=== PATIENT | female | born 1960 | race Caucasian/White ===

== ENCOUNTER → 2018-02-03 16:59 | Outpatient (CLI) | payer OTHER, SELFPAY ==
[2018-02-03 17:59] LABS: Absolute Lymphocyte Count 1.96 X10^3/ul (0.83-4.51); Absolute Neutrophil Count 3.8 X10^3/uL (2.0-7.7); Basophil# 0.03 X10^3/uL; Basophil% 0.5 % (0-1); Eosinophil# 0.32 X10^3/uL; Eosinophils% 4.9 % (0-5); Hematocrit 40.3 % (37-47); Hemoglobin 13.2 g/dl (12.0-15.0); Lymphocyte # 1.96 X10^3/ul (4.0); Lymphocyte % 30.3 % (19-41); Mean Corp Hgb Conc 32.8 g/gl (32-36); Mean Corpuscular Hgb 28.8 pg (27.0-32.0); Mean Platelet Vol. 11.1 fl (6.2-12.0); Monocyte# 0.32 X10^3/uL; Monocyte% 4.9 % (0-10); Neutrophil # 3.83 X10^3/uL (2.7-7.7); Neutrophil % 59.2 % (47-70); Platelet Count 161 K/mm3 (150-450); RBC Distribution Width SD 41.6 fl (35.1-43.9); Red Blood Count 4.58 M/mm3 (4.2-5.4); White Blood Count 6.5 K/mm3 (4.4-11.0)
[2018-02-03 18:01] LABS: POSITIVE COUNT NO; POSITIVE DIFFERENTIAL NO; POSITIVE MORPHOLOGY NO
[2018-02-03 18:14] LABS: BUN 19 mg/dL (7-18); Creatinine, Serum 0.94 mg/dL (0.55-1.02); EST Glomerular Filtration Rate 66 mL/min (>60); Glucose 117 mg/dL (74-106)
[2018-02-03 18:15] LABS: Anion Gap 7 (5-15); BUN/Creat Ratio 20.3 RATIO (10-20); Calcium,Total 9.2 mg/dL (8.5-10.1); Chloride 106 mmol/L (98-107); Est Glom Filt Rate - Afr Amer 79 mL/min (>60); Magnesium 2.2 mg/dL (1.6-2.6); Potassium 3.6 mmol/L (3.5-5.1); Sodium Level 141 mmol/L (136-145)
== END ==
PROVIDERS: Family Provider Family Medicine; PCP Family Medicine; Visit Provider Family Medicine
DX: J02.9 Acute pharyngitis, unspecified (principal); R25.2 Cramp and spasm
CPT/HCPCS: 36415; 80048; 83735; 85025

== ENCOUNTER → 2019-02-03 10:02 | Outpatient (CLI) | payer OTHER, SELFPAY ==
[2019-02-03 12:34] LABS: Absolute Neutrophil Count 3.2 X10^3/uL (2.0-7.7); Basophil# 0.04 X10^3/uL; Basophil% 0.8 % (0-1); Eosinophil# 0.14 X10^3/uL; Eosinophils% 2.7 % (0-5); Hematocrit 40.8 % (37-47); Lymphocyte % 28.9 % (19-41); Mean Corp Hgb Conc 31.9 g/gl (32-36); Mean Corpuscular Hgb 28.3 pg (27.0-32.0); Mean Corpuscular Volume 88.9 fL (81-99); Mean Platelet Vol. 11.6 fl (6.2-12.0); Monocyte# 0.34 X10^3/uL; Monocyte% 6.6 % (0-10); Neutrophil # 3.16 X10^3/uL (2.7-7.7); Neutrophil % 60.8 % (47-70); Platelet Count 170 K/mm3 (150-450); RBC Distribution Width CV 13.1 % (11.6-14.6); RBC Distribution Width SD 41.9 fl (35.1-43.9); Red Blood Count 4.59 M/mm3 (4.2-5.4); White Blood Count 5.2 K/mm3 (4.4-11.0)
[2019-02-03 12:41] LABS: ALB/GLOB Ratio 1.3 RATIO (0.9-2.4); AST(SGOT) 10 U/L (15-37); Alanine Aminotransfer ALT/SGPT 17 U/L (13-56); Albumin, Serum 4.2 g/dL (3.2-5.0); Alkaline Phosphatase 114 U/L (45-117); Anion Gap 6 (5-15); BUN 12 mg/dL (7-18); BUN/Creat Ratio 13.5 RATIO (10-20); Calcium,Total 9.5 mg/dL (8.5-10.1); Chloride 106 mmol/L (98-107); Creatinine, Serum 0.89 mg/dL (0.55-1.02); EST Glomerular Filtration Rate 69 mL/min (>60); Est Glom Filt Rate - Afr Amer 84 mL/min (>60); Globulin 3.3 g/dL (2.2-4.2); Glucose 84 mg/dL (74-106); Lipase 184 U/L (73-393); POSITIVE COUNT NO; POSITIVE DIFFERENTIAL NO; POSITIVE MORPHOLOGY NO; Potassium 4.3 mmol/L (3.5-5.1); Protein, Total 7.5 g/dL (6.4-8.2); Sodium Level 143 mmol/L (136-145)
--- NOTE | 2019-02-03 14:35 | US_ITS ---
STUDY: ABDOMINAL ULTRASOUND - RIGHT UPPER QUADRANT REASON FOR VISIT: Female, 58 years old. Pain TECHNIQUE: Ultrasound evaluation of the right upper quadrant was performed with real-time and static lock-scale imaging. TECHNICAL QUALITY: Adequate. COMPARISON: None. FINDINGS: Liver: The liver measures 11 cm. There is normal echogenicity of the liver. The bile ducts are within normal limits. There is hepatic color flow. The direction of portal flow is hepatopetal. There is no demonstrated mass lesion. Gallbladder: Normal distended gallbladder. The gallbladder wall measures 3 mm. There is a negative sonographic Oakley's sign. There is no pericholecystic fluid. 1 cm echogenic focus in the fundus likely represents tumefactive sludge or fundal stone. Common Bile Duct (C.B.D.): The common bile duct measures 3 mm. Pancreas: Normal size of the head, body and tail of the pancreas. There is normal echogenicity of the pancreas. There is no demonstrated pancreatic mass or cyst. Right Kidney: Normal size of the right kidney. The right kidney measures 10 cm. Normal renal cortex. There is no demonstrated renal mass or cyst. There is no right hydronephrosis. US/Abdomen Limited IMPRESSION: No acute pathology identified in the right upper quadrant. Tumefactive sludge versus fundal stone. Electronically Signed: Saeid Griffin, at 16:23 EDT Tel , Service support ,
== END ==
PROVIDERS: Family Provider Family Medicine; PCP Family Medicine; Referring Provider Family Medicine; Visit Provider Family Medicine
DX: R10.9 Unspecified abdominal pain (principal)
CPT/HCPCS: 36415; 76705; 80053; 83690; 85025

== ENCOUNTER → 2019-02-17 11:50 | Outpatient (CLI) | payer OTHER, SELFPAY ==
[2019-02-10 15:28] VITALS: BMI 23.2
--- NOTE | 2019-02-17 12:05 | CT_ITS ---
STUDY: CT ABDOMEN AND PELVIS WITH CONTRAST REASON FOR EXAM: Female, 58 years old. Abdominal pain. History of prior hernia repair. RADIATION DOSAGE (If Supplied By Facility): CTDIvol = ( 15.03 ) mGy, DLP = ( 344.51 ) mGycm TECHNIQUE: Transaxial images were obtained from the dome of the diaphragm to the symphysis pubis with oral contrast. 80 IV/Oral Isovue 300 was administered. Sagittal and coronal images were reconstructed. Individualized dose optimization techniques were used for this CT. COMPARISON: Comparison is made with prior study dated June 10, 2016. FINDINGS: The visualized lung bases are unremarkable. The visualized portions of the heart are within normal limits. Normal liver. Normal gallbladder and extrahepatic biliary system. Normal spleen. Normal pancreas. Normal bilateral adrenal glands. Normal right kidney. Normal left kidney. Normal visualized stomach. Normal small intestine. There are scattered colonic diverticula consistent with diverticulosis. A large amount of fecal material is seen in the colon. The appendix is visualized and appears normal. Normal abdominal aorta. Normal inferior vena cava. Normal retroperitoneum. Normal urinary bladder. Normal abdominal wall. Grade 1 anterior listhesis of L5 on S1 without spondylolysis. CT/Abdomen/Pelvis WITH Contrast IMPRESSION: Large amount of fecal material is seen in the colon. Scattered sigmoid diverticula. Grade 1 anterior listhesis of L5 on S1 without spondylolysis. Electronically Signed: Constantine Sebastian, at 13:54 EDT , Service support ,
== END ==
PROVIDERS: Family Provider Family Medicine; PCP Family Medicine; Referring Provider Surgery; Visit Provider Surgery
DX: R10.9 Unspecified abdominal pain (principal)
CPT/HCPCS: 74177; Q9967

== ENCOUNTER 2019-03-25 10:59 | Day surgery (SDC) | payer OTHER, SELFPAY ==
--- NOTE | 2019-02-10 03:48 | HP_ITS ---
Intake Vital Signs 02/10/19 Height 5 ft 2 in 02/10/19 Weight: 127 lb 02/10/19 Body Mass Index (BMI) 23.2 02/10/19 Blood Pressure 120/75 02/10/19 Blood Pressure Location Rt brachial 02/10/19 Blood Pressure Position Sitting 02/10/19 Respiratory Rate 18 02/10/19 Pulse Rate 72 02/10/19 Pulse Source Monitor 02/10/19 Temperature 98.2 F 02/10/19 Temperature Source Oral 02/10/19 Pulse Ox 98 02/10/19 Oxygen Delivery Method room air Intake Visit Reasons: [place] [facility] [place] [employer] Required: No Is patient in pain?: No Allergies Antihistamines - Alkylamine Allergy (Verified 02/10/19 15:29) Anaphylaxis Antihistamines - Ethanolamine Allergy (Verified 02/10/19 15:29) Anaphylaxis Antihistamines - Ethylenediamine Allergy (Verified 02/10/19 15:29) Anaphylaxis Antihistamines - Piperazine Allergy (Verified 02/10/19 15:29) Anaphylaxis Antihistamines - Piperidine Allergy (Verified 02/10/19 15:29) Anaphylaxis cefaclor [From Ceclor] Allergy (Verified 02/10/19 15:29) Other erythromycin base Allergy (Verified 02/10/19 15:29) Other hydroxyzine HCl [From Atarax] Allergy (Verified 02/10/19 15:29) Other Penicillins Allergy (Verified 02/10/19 15:29) Hives Medications Advocar 1 tab PO BREAKFAST 02/12/16 [History Confirmed 02/10/19] Ibuprofen [Advil] 200 mg PO Q6H PRN PRN 02/12/16 [History Confirmed 02/10/19] Hydrocodone Bitart/Apap 5-325 [[place] 5/325] 1 - 2 tab PO Q4H PRN PRN #20 tab 06/10/16 [Rx Confirmed 02/10/19] Ondansetron [Zofran Odt] 4 mg PO Q8H PRN PRN #10 tab 06/10/16 [Rx Confirmed 02/10/19] cholecalciferol (vitamin D3) 2,000 unit capsule 2,000 unit PO DAILY 02/10/19 [History Confirmed 02/10/19] PFSH Medical History Acid reflux (Acute) Diarrhea (Acute) Nausea and vomiting (Acute) Surgical History History of right inguinal hernia repair (Acute) Family History Father Arthritis Heart disease Hypertension Cancer skin cancer Mother Diabetes Sister Cancer ovarian cancer Social History Smoking Status: Never smoker HPI HPI HPI: FUNMILAYO SYKES, is a 58 F who presents to the office today for HPI HPI Surgical H&P: Yes HPI: FUNMILAYO SYKES, is a 58 F who presents to the office today for right upper quadrant pain patient notes she has been having right upper quadrant right shoulder pain for a few months. She does also have nausea and vomiting. Patient also has had occasional loose stools. ROS General General: Yes fatigue; no weight change, appetite, colon cancer, breast cancer or weakness HEENT HEENT: No difficulty swallowing, eye injury, eye surgery, swollen glands or hoarseness Endo Endocrine: No thyroid disease, diabetes mellitus, thyroid cancer, Hair loss, heat intolerance or cold intolerance Skin Skin: No rash or changing moles Breast Breast: No left breast lump, right breast lump, nipple discharge, breast pain, abnormal mammogram, abnormal US or breast enlargement Musc Musculoskeletal: Yes arthritis; no back problems, rheumatoid arthritis, gout or joint pain Cardio Cardiovascular: No murmur, pacemaker, heart disease, atrial fibrillation, high blood pressure, heart attack, heart stent, palpitations, shortness of breat with exertion or chest pain Psych Psychiatric: No depression, anxiety or hearing voices Resp Respiratory: No shortness of breath, No sleep apnea, No cough, No COPD, No asthma, No emphysema, No wheezing Gastro Gastrointestinal: Yes abdominal pain, Yes nausea or vomiting, Yes diarrhea, No constipation, No blood in stool, Yes acid reflux, No hemorrhoids, No ulcers, Yes gallbladder problem, No black,tarry stools Dominik Hematologic: No blood thinners, No blood disorders, No bleeding, No anemia, No blood clots Neuro Neurologic: No system reviewed and no additional complaints, except as docu, No as per HPI, No abnormal walking, No abnormal hearing, No abnormal movements, No abnormal speech, No behavioral changes, No burning sensations, No confusion, No seizure-like activity, No unsteadiness, No dizziness, No localized weakness, No frequent falls, No headache(s), No lack of coordination, No loss of vision, No memory loss, No numbness, No other visual disturbances, No radiating pain, No restless legs, No sensory deficit, No fainting, No tingling, No tremor(s), No weakness, No other Exam Const General: cooperative Orientation: alert, oriented x3 Chest Breast Palpation: No nipple discharge Resp Effort & Inspection: normal respiratory effort Auscultation: clear to auscultation bilaterally Cardio Rate: regular rate Rhythm: regular rhythm Heart Sounds: no murmurs GI Inspection: non-distended Palpation: soft, tender in the RUQ Assessment & Plan Problems 1. Calculus of gallbladder without cholecystitis without obstruction K80.20 Plan The patient had recent CT and ultrasound. Ultrasound showed 1 cm focus of gallbladder sludge versus stone. I reviewed the patient's CT scan I am concerned because I believe the hepatic veins appear dilated. There are also in close proximity to the gallbladder. I would like to obtain a CT scan with p.o. and IV contrast to examine the liver before proceeding with laparoscopic cholecystectomy. I explained laparoscopic cholecystectomy to the patient as well as the risks. Patient would like to proceed. After CT is performed I will schedule her for laparoscopic cholecystectomy. Avery Galloway MD Pager: [facility] [address] [place] [address], [address] [place] [address] Office: Orders Orders: Abdomen/Pelvis WITH Contrast Today R10.9 Coding Level of Care Code Off vis,new,level 3 Diagnoses Calculus of gallbladder without cholecystitis without obstruction K80.20 ??Cholelithiasis location: gallbladder ??Cholecystitis presence: without cholecystitis ??Biliary obstruction: without biliary obstruction 02/10/19 1548 <Electronically signed by Avery darnell MD> Date _ Avery Galloway MD I have re-examined the patient. There are no clinical changes since date of exam.
[2019-02-10 15:28] VITALS: BMI 23.2
[2019-03-25] VITALS (8 sets, daily range): BP systolic 120–137; BP diastolic 62–87; PULSE 55–92; RESP 16–18; TEMP 36.2–36.8; O2SAT 97–100; BMI 23.0
--- NOTE | 2019-03-25 | GALL_PTH ---
PATIENT: FUNMILAYO SYKES LOC: [facility] [place] U#:[id number] AGE/SX: 58/F ROOM: RE03/25/[address]: Dr. Avery Galloway MD : 1960 BED: DIS: 03/25/2019 SPEC #: [id number] RECD: 03/25/19 15:08 STATUS: ROSALIO QUINTERO #: [id number] FITO: 03/25/19 00:[address]: Avery Galloway DEPT: SURGICAL PATHOLOGY RECD BY: Hardy Grier ENTERED: 03/28/19 10:53 SP TYPE: LÁZARO VAN DR: Dr. Juan Flynn MD Tissues: Gallbladder, NOS Procedures: Surgery Specimen Level III HEADER OPERATION: Laparoscopic cholecystectomy with IOC PRE-OP DIAGNOSIS: Calculus of gallbladder without cholecystitis or obstruction TISSUE SUBMITTED: Gallbladder MICROSCOPIC DIAGNOSIS Gallbladder, cholecystectomy: Chronic cholecystitis and cholelithiasis. SJ:felix 03/29/19 MICROSCOPIC DESCRIPTION Slides are reviewed. GROSS DESCRIPTION Received is one container labeled with the patient's name and designated gallbladder. The specimen consists of a gallbladder measuring 9 cm in length and up to 3 cm in diameter. The external surface is pink-fabian, smooth and glistening for the most part. Focally it is granular, hemorrhagic and contains cautery artifact. The gallbladder contains an ovoid, brown stone at the fundus measuring 3.5 x 2 x 2 cm. The mucosa is bile-stained and without any mass lesions. The gallbladder wall measures up to 0.3 cm in thickness. [employer] sections from the gallbladder and the cystic duct are submitted in one cassette. / SJ:felix 03/28/19 TC:3 CPT: 45175
--- NOTE | 2019-03-25 11:11 | EKG12_ITS ---
Test Reason : PRE OP Blood Pressure : / mmHG Vent. Rate : 059 BPM Atrial Rate : 059 BPM P-R Int : 144 ms QRS Dur : 078 ms QT Int : 390 ms P-R-T Axes : 001 033 026 degrees QTc Int : 386 ms Sinus bradycardia Otherwise normal ECG Confirmed by WILLIE BASHIR, PORTER ([id number]), science editor MAGDY TRAMMELL ([id number]) on 03/30/2019 1:00:45 PM Referred By: Avery Galloway Confirmed By:PORTER TAPIA MD
--- NOTE | 2019-03-25 12:58 | DCINST_ITS ---
Discharge Diet: Light diet - advance as tolerated Discharge Activity: Return to Normal Activity, May Not Drive - for 2-3 days or while taking narcotic pain medicataions., - - Do not drive, work heavy equipment or sign legal documents for 24 hours. May shower in (days): 1 - with the bandage in place. Lifting Restrictions: 20 lbs for 2 weeks Additional Activity Instructions:: Pain medication may cause nausea. You should typically eat light foods as you take your pain medications. Pain medication may also cause constipation. If this is a problem for you, please discuss with your doctor. Call your doctor if your incision/area has: Continuous Slow Oozing, Sudden Increased Bleeding, Increased Pain/ Swelling, Increased Redness, Foul Smelling Discharge, Fever of 101 or Higher Call your doctor if you observe: Fever of 101 or Higher Suture Line Care: Avoid Pulling/Pushing, Avoid Pinching/Bending Additional Dressing/Incision Instructions:: Leave operative bandaids on for 2 days. When you remove dressing, leave Steri-Strips on until your follow-up appointment, or until the Steri-Strips fall off on their own. Allergies/Adverse Reactions: Allergies Antihistamines - Alkylamine Allergy (Verified 03/25/19 11:22) Anaphylaxis Antihistamines - Ethanolamine Allergy (Verified 03/25/19 11:22) Anaphylaxis Antihistamines - Ethylenediamine Allergy (Verified 03/25/19 11:22) Anaphylaxis Antihistamines - Piperazine Allergy (Verified 03/25/19 11:22) Anaphylaxis Antihistamines - Piperidine Allergy (Verified 03/25/19 11:22) Anaphylaxis cefaclor [From Ceclor] Allergy (Verified 03/25/19 11:22) Other erythromycin base Allergy (Verified 03/25/19 11:22) Other hydroxyzine HCl [From Atarax] Allergy (Verified 03/25/19 11:22) Other Penicillins Allergy (Verified 03/25/19 11:22) Hives Medications to take at Discharge Advocar 1 tab PO BREAKFAST 02/12/16 Ibuprofen [Advil] 200 mg PO Q6H PRN PRN 02/12/16 cholecalciferol (vitamin D3) 2,000 unit capsule 2,000 unit PO DAILY 02/10/19 Hydrocodone Bitart/Apap 5-325 [[place] 5MG-325MG] 1 - 2 tablet PO Q4H PRN PRN 7 Days #30 tablet 03/25/19 The following prescriptions were given: Hydrocodone Bitart/Apap 5-325 [[place] 5MG-325MG] 1 - 2 tablet PO Q4H PRN PRN 7 Days #30 tablet PRN Reason: Pain Transmission Status: Sent to [facility] Primary Care Physician: Juan Flynn MD [Primary Care Provider] - Test Results: Test results from this visit will be discussed in further detail at your follow- up appointment, if applicable. Please Follow Up With: Avery Galloway MD When: Please call to schedule 2 week follow up appointment. [phone]
--- NOTE | 2019-03-25 13:00 | RAD_ITS ---
PROCEDURE: FLUOROSCOPY ASSISTANCE DATE OF EXAMINATION: 03/25/2019 INDICATION: Female, 58 years old. Intraoperative cholangiography status post cholecystectomy. FLUOROSCOPY TIME (if supplied): (0:14) minutes/seconds. 81 cine fluoroscopic images. RADIATION DOSAGE (If Supplied By Facility): Please see attached dosage report. IMPRESSION/FINDINGS: Images depict cannulation of the cystic duct, cholangiogram, nondilated intrahepatic biliary tree, patent biliary tree without visible filling defect, normal spillage into the small bowel, minimal reflux within nondilated pancreatic duct. Fluoroscopic images submitted to PACS for procedural/postsurgical documentation Please see procedural/surgical note Radiologist not present at the time of examination Electronically Signed: Librado Brambila MD at 18:35 EDT Tel , Service support , RAD/Cholangiogram/ O R,Initial
[2019-03-25] MEDS: Bupiv/Epi 0.25% 30 ML Vial (13:34)
--- NOTE | 2019-03-25 13:47 | OP.PCM_ITS ---
Problem List (1) Cholelithiasis Status: Acute Qualifiers: Cholelithiasis location: gallbladder Cholecystitis presence: without cholecystitis Biliary obstruction: without biliary obstruction Qualified Code(s): K80.20 - Calculus of gallbladder without cholecystitis without obstruction Report of Operation Date of Procedure: 03/25/19 Pre-Operative Diagnosis: Cholelithiasis Post-Operative Diagnosis: Same Surgery/Procedure Performed:: Laparoscopic cholecystectomy with cholangiogram Description of Surgical Findings:: Normal cholangiogram. Large gallstone Specimen's removed: Gallbladder and contents Description of Procedure: After obtaining informed consent patient was brought back to the operating room. General anesthesia was induced. The abdomen was prepped and draped in usual sterile fashion. A small midline incision was made superior to the umbilicus and deepened to the level of fascia. The fascia was elevated and incised. Next the peritoneum was elevated and incised in the same fashion. Finger sweep was p erformed and the Souza trocar was placed into the abdomen. The balloon was inflated. The abdomen was inflated to 15 mmHg. Next a camera was introduced into the abdomen and the abdomen was inspected. Next under direct visualization three 5-mm ports were placed one subxiphoid and 2 subcostal. Next the gallbladder was elevated and retracted toward the right shoulder. The peritoneum was stripped from the gallbladder. The infundibulum was located and retracted laterally. Next the triangle of Calot was dissected and the cystic duct and cystic artery were identified. Cholangiograms were performed. The Perez clamp was used to clamp across the infundibulum and the catheter needle was inserted into the gallbladder. Under fluoroscopy contrast was instilled into the gallbladder and the common duct, cystic duct as well as proximal hepatic ducts were identified. There was good filling of the duodenum. There were no filling defects noted in the common bile duct. The clamp was removed as well as the needle and the infundibulum was grasped once more. Three hemolock clips were placed across the cystic duct. The cystic duct was then divided leaving 2 clips on the stump. The cystic artery was clipped and divided in the same fashion. The hook cautery was then used to take the gallbladder off of the gallbladder bed. Hemostasis was obtained. Gallbladder fossa was irrigated and no active bleeding or bile leakage was noted. Next the camera switched to a 5 mm camera and introduced in the subxiphoid port. An Endopouch bag was placed through the umbilical port and the gallbladder was placed into it. The gallbladder was then removed through the umbilical incision. The camera was then reinserted through the umbilical port. The gallbladder fossa was inspected once more and noted to be hemostatic with no leaking bile. The abdomen was suctioned dry. The 5 mm ports were removed under direct visualization. The umbilical port was then removed and the air was removed from the abdomen. Next using an 0 Vicryl suture the umbilical fascia was closed in a [id number] fashion. The umbilical port site was irrigated local anesthetic was administered to all the incisions. All the incisions were closed with interrupted subcuticular 4-0 Monocryl sutures followed by Steri-Strips and dressings. The patient was awoken and taken to PACU in stable condition. - Admit VTE Documentation VTE Mechan Device Prophylaxis: SCD's
[2019-03-25] MEDS: HYDROcodone Bitartrate/Apap 5/325 Tablet PO (15:36)
--- NOTE | 2019-03-28 09:36 | HP.PCM_ITS ---
Problem List (1) Cholelithiasis Status: Acute Qualifiers: Cholelithiasis location: gallbladder Cholecystitis presence: without cholecystitis Biliary obstruction: without biliary obstruction Qualified Code(s): K80.20 - Calculus of gallbladder without cholecystitis without obstruction History of Present Illness Date of Admission: 03/25/19 The patient is a 58 year old F who is having right upper quadrant pain and ultrasound showed cholelithiasis. Past Medical History Medical History: Medical History (Last Reviewed 02/10/19 @ 15:23 by Kalpana Palmer) Abdominal pain R10.9 Acid reflux K21.9 Diarrhea R19.7 Nausea and vomiting R11.2 Allergies Antihistamines - Alkylamine Allergy (Verified 03/25/19 11:22) Anaphylaxis Antihistamines - Ethanolamine Allergy (Verified 03/25/19 11:22) Anaphylaxis Antihistamines - Ethylenediamine Allergy (Verified 03/25/19 11:22) Anaphylaxis Antihistamines - Piperazine Allergy (Verified 03/25/19 11:22) Anaphylaxis Antihistamines - Piperidine Allergy (Verified 03/25/19 11:22) Anaphylaxis cefaclor [From Ceclor] Allergy (Verified 03/25/19 11:22) Other erythromycin base Allergy (Verified 03/25/19 11:22) Other hydroxyzine HCl [From Atarax] Allergy (Verified 03/25/19 11:22) Other Penicillins Allergy (Verified 03/25/19 11:22) Hives Home Medications: Ambulatory Orders Medication Instructions Recorded Advocar 1 tab PO BREAKFAST 02/12/16 Ibuprofen [Advil] 200 mg PO Q6H PRN PRN 02/12/16 cholecalciferol (vitamin D3) 2,000 2,000 unit PO DAILY 02/10/19 unit capsule Hydrocodone Bitart/Apap 5-325 1 - 2 tab PO Q4H PRN PRN 7 Days 03/25/19 [[place] 5MG-325MG] #30 tab Surgical History: Surgical History (Last Updated 02/10/19 @ 15:24 by Kalpana Palmer) History of right inguinal hernia repair Z98.890, Z87.19 Smoking Status: Never smoker Tobacco Use: Non-smoker Review of Systems Constitutional: Denies: Anorexia, Chills, Night Sweats HEENT: Denies: Difficulty Swallowing Cardiovascular: Denies: Chest Pain Respiratory: Denies: Cough, Shortness of Breath Gastrointestinal: Reports: Abdominal Pain, Nausea Genitourinary: Denies: Dysuria Musculoskeletal: Denies: Joint Tenderness Skin: Denies: Dryness, Jaundice Neurological: Denies: Blurred vision VTE Information - Inpt Only VTE Present on Admission: No VTE Mechan Device Prophylaxis: SCD's - Physical Exam General: Alert, Oriented x3 Neck: No JVD Lungs: Normal air movement Cardiovascular: Regular rate, Regular Rhythm Abdomen: Soft, Non Tender, Non-Distended Vital Signs Temp Pulse Resp BP Pulse Ox 97.2 F L 63 18 120/62 98 03/25/19 17:19 03/25/19 17:19 03/25/19 17:19 03/25/19 17:19 03/25/19 17:19 Oxygen Delivery Method Room Air Weight: 125 lb 14.143 oz Body Mass Index (BMI) 23.0 Assessment/Plan All Active Problems (Last Reviewed 02/10/19 @ 15:23 by Kalpana Palmer) Cholelithiasis (Acute) 58-year-old female with cholelithiasis and biliary colic I discussed the procedure in detail with the patient. I discussed the risks, benefits, and alternatives of the procedure. I discussed the risks including but not limited to bleeding, infection, injury to surrounding organs such as the liver, bile duct, bowels. I did discuss the possibility of having to convert to an open procedure as well as the possibility that if any injuries occurred this may necessitate further surgery at a tertiary care center. Avery Galloway MD Pager: [facility] [address] [place] [address], [address] [place] [address] Office:
== END 2019-03-25 17:21 | disposition home or self-care (01) ==
LOC: SDC 11:01 → AC 11:02
PROVIDERS: Family Provider Family Medicine; PCP Family Medicine; Referring Provider Surgery; Visit Provider Surgery
PROC: (CPT 47610; principal; 2019-03-25 12:40)
DX: K80.10 Calculus of gallbladder with chronic cholecystitis without obstruction (principal); K21.9 Gastro-esophageal reflux disease without esophagitis; K58.0 Irritable bowel syndrome with diarrhea
CPT/HCPCS: 00790; 47563; 74300; 76000; 88304; 93005; J7120; J2405

== ENCOUNTER 2020-01-25 15:00 | Outpatient (RCR) | payer OTHER, SELFPAY ==
[2019-03-25 11:23] VITALS: BMI 23.0
--- NOTE | 2019-12-19 18:23 | HP.SP.AD_ITS ---
History - History Date of Eval: 12/19/19 Previous speech therapy: No Smoking Status: Never smoker Hx Smoking: No Hx Tobacco Use: No - Pain Is pain an issue with your current prescribed condition?: No Patient Allergies - Allergies Allergies Antihistamines - Alkylamine Allergy (Verified 04/08/19 08:24) Anaphylaxis Antihistamines - Ethanolamine Allergy (Verified 04/08/19 08:24) Anaphylaxis Antihistamines - Ethylenediamine Allergy (Verified 04/08/19 08:24) Anaphylaxis Antihistamines - Piperazine Allergy (Verified 04/08/19 08:24) Anaphylaxis Antihistamines - Piperidine Allergy (Verified 04/08/19 08:24) Anaphylaxis cefaclor [From Ceclor] Allergy (Verified 04/08/19 08:24) Other erythromycin base Allergy (Verified 04/08/19 08:24) Other hydroxyzine HCl [From Atarax] Allergy (Verified 04/08/19 08:24) Other Penicillins Allergy (Verified 04/08/19 08:24) Hives Subjective Clinical Impression - Adult Clinical Impression Dysphonia: any 'abnormal' vocal quality suggesting an interruption of normal production: Present Breathiness: an audible excape of air or a 'weak' vocal tone suggestive of glottal insufficiency: Present Aphonic break: a break or intrruption in the vibration or phonation: Present - Non-Phonatory Behaviors/Respiration Reduced loudness or vocal weakness: Present Limited breath support for speech: Present Clavicular breathing: excessive movement of the chest and shoulders during inspiration: Present Other Impressions - Comments Assessment -: Pt was seen by ENT 12/12/2019 and 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 Pt reports episodes of pharyngitis and dysphonia for up to three days at a time each winter. She currently reports voice loss for nearly two weeks. Pt did have episodes of pharyngitis followed by sinusitis shortly prior to current dysphonia. She states that her voice gradually became smaller before progressing to a whisper only while on a phone call, without subsequent improvement. She reports not even whispering for some time and resorting to writing for functional communication. The pt feels that second- hand smoke (exposed frequently at work) may have an impact on her vocal functioning. Education provided re: spasmodic dysphonia and its causes (neurological with possible environmental triggers). She also reports significantly increased stress/anxiety over the last three years and especially more recently. During the evaluation, the pt was initially aphonic, gesturing and producing brief whispers. However, pt did progress to phonation as evaluation continued, presenting with a breathy, high-pitched vocal quality with significantly decreased volume. Pt reports feeling of strain and soreness in throat with prolonged phonation, though no extrinsic laryngeal muscle tension was observed. Pt presented with significant clavicular breathing, with education provided to improve abdominal breath support. 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 Plan - Plan Plan: A skilled voice therapy trial is warranted at this time secondary to the pt's need for improved phonation across environments, as her current level of functioning may make it difficult for her to effectively convey information to clients, coworkers, family, friends, and beyond. Therapy will further target increasing understanding of abductor spasmodic dysphonia and its effects, de creasing tension/strain and improving breath support, and effective and efficient compensation methods. - Recommendations Treatment Warranted: Yes - Frequency Frequency: 2x /Week Duration: 2-4 Weeks - Prognosis Prognosis: Fair - Goals that are Established: Determination:: Goals will be added/modified as deemed necessary and appropriate. Therapy will be discontinued when results of re-evaluation indicate therapy is no longer needed or lack of progress has been documented. - Goal #1-5 Goal #1: The pt will independently demonstrate abdominal breathing to improve breath support and vocal volume in 4/5 trials. Goal #2: The pt will complete laryngeal relaxation exercises to reduce reported laryngeal tension in 4/5 trials. Goal #3: The pt will demonstrate improved voicing by maintaining phonation during phrases at an appropriate/conversational pitch and loudness in 4/5 trials. Education - Patient Instruction Patient Education: Diagnosis, Treatment Plan, Goals
--- NOTE | 2020-01-25 15:33 | HP.SP.DC ---
ST Discharge Summary - Discharged: Discharge: Geena Hernandez is discharged from outpatient speech therapy effective 01/25/2020. Geena attended 9 sessions following her initial evaluation targeting improved voicing secondary to a diagnosis of abductor spasmodic dysphonia. At the time of discharge, the patient is demonstrating normal voicing and volume for the purposes of conversation and feels her voice has largely returned to normal. She does have some - very infrequent - episodes of breathiness following voiceless consonants during conversation, which she is able to improve with subsequent productions. Geena has improved her breath support and was educated on laryngeal relaxation exercises PRN. Overall, she demonstrates an improved understanding of abductor spasmodic dysphonia, its causes, and its effects, resulting in a reported increased confidence in her voice. Please reconsult as needed.
== END 2020-01-25 19:00 | disposition home or self-care (01) ==
LOC: SP 15:00
PROVIDERS: PCP Family Medicine; Referring Provider Otolaryngology; Visit Provider Otolaryngology
DX: J38.3 Other diseases of vocal cords (principal)
CPT/HCPCS: 92507; 92524

== ENCOUNTER → 2020-12-31 16:32 | Outpatient (CLI) | payer OTHER, SELFPAY ==
[2019-03-25 11:23] VITALS: BMI 23.0
[2020-12-31 17:57] LABS: Erythrocyte Sedimentation Rate 2 mm/hr (0-30)
[2020-12-31 18:49] LABS: CRP < 2.90 mg/L (0.0-3.0)
[2021-01-02 18:04] LABS: ANTINUCLEAR ANTIBODIES DIRECT Negative (Negative)
== END ==
PROVIDERS: PCP Family Medicine; Visit Provider Family Medicine
DX: M25.559 Pain in unspecified hip (principal)
CPT/HCPCS: 36415; 85652; 86038; 86140

== ENCOUNTER → 2021-02-19 09:28 | Outpatient (CLI) | payer OTHER, SELFPAY ==
[2019-03-25 11:23] VITALS: BMI 23.0
--- NOTE | 2021-02-19 09:35 | RAD_ITS ---
STUDY: X-RAY - RIGHT FOOT CLINICAL: Right foot pain extending across metatarsals since yesterday, no specific injury. TECHNIQUE: 3 view(s) of the foot. COMPARISON: None. FINDINGS: Normal talus, calcaneus, and tarsal bones. Normal visualized subtalar, talonavicular, calcaneocuboid, tarsal and tarsometatarsal articulations. Normal metatarsi. Normal metatarsophalangeal joint of the great toe. Normal tibial and fibular sesamoid bones. Normal interphalangeal joint of the great toe. Normal phalanges of the great toe. Normal second through fifth metatarsophalangeal joints. Normal interphalangeal joints and phalanges of the lesser toes. The soft tissue structures are unremarkable. RAD/Foot min 3 Views IMPRESSION: Normal x-ray examination of the right foot. Electronically Signed: Len Pearl MD at 10:51 EDT Tel , Service support ,
== END ==
PROVIDERS: PCP Family Medicine; Referring Provider Family Medicine; Visit Provider Family Medicine
DX: M79.671 Pain in right foot (principal)
CPT/HCPCS: 73630

== ENCOUNTER → 2021-03-06 08:38 | Outpatient (CLI) | payer OTHER, SELFPAY ==
[2019-03-25 11:23] VITALS: BMI 23.0
--- NOTE | 2021-03-06 08:45 | BD_ITS ---
STUDY: DUAL ENERGY X-RAY ABSORPTIOMETRY / DXA REASON FOR EXAM: Female, 60 years old. E55.9. The patient is postmenopausal. TECHNIQUE: Bone Mineral Density (BMD) measurements of lumbar spine and bilateral hips were obtained. COMPARISON: None. FINDINGS: Lumbar Spine (L1-L4): g/cm2 (1.148) / T-score (-0.3) / Z-score (0.9) Findings are suggestive of normal bone density with a low fracture risk. Left Femur Total: g/cm2 (0.813) / T-score (-1.5) / Z-score (-0.6) Left Femoral Neck: g/cm2 (0.807) / T-score (-1.7) / Z-score (-0.4) Right Femur Total: g/cm2 (0.872) / T-score (-1.1) / Z-score (-0.1) Right Femoral Neck: g/cm2 (0.843) / T-score (-1.4) / Z-score (-0.2) BD/Dexa Bone Density Study IMPRESSION: The patient is considered osteopenic as outlined below according to World Arvin Organization (WHO) criteria with a moderate fracture risk. Reference Information: The T-score is the number of standard deviations above or below the standard which is normal for young adults at their peak bone mineral density. The World Health Organization (WHO) interprets the T-scores as follows: Above -1 Normal bone density Between -1 and -2.5 Osteopenia Equal to / or below -2.5 Osteoporosis As a practical clinical guideline, osteopenia may be graded as follows: Mild -1 through -1.5 Moderate -1.6 through -2.0 Severe -2.1 through -2.4 The Z-score is the number of standard deviations above or below age-matched controls. A Z-score of less than -1.5 would be considered abnormal. References: 1. NIH Osteoporosis and Related Bone Diseases www osteo.org 2. International Society for Clinical Densitometry www iscd.org 3. National Osteoporosis Foundation www nof.org Electronically Signed: Constantine Sebastian MD at 15:27 EDT , Service support ,
== END ==
PROVIDERS: PCP Family Medicine; Referring Provider Family Medicine; Visit Provider Family Medicine
DX: E55.9 Vitamin D deficiency, unspecified (principal)
CPT/HCPCS: 77080

== ENCOUNTER → 2023-06-11 | Outpatient (CLI) | payer OTHER, SELFPAY ==
[2023-06-11 11:19] LABS: Vitamin D,25 Hydroxy 75.3 ng/mL
[2023-06-11 11:26] LABS: Anion Gap 2 (5-15); BUN 12 mg/dL (7-18); BUN/Creat Ratio 13.3 RATIO (10-20); Calcium,Total 9.2 mg/dL (8.5-10.1); Chloride 109 mmol/L (98-107); Cholesterol 154 mg/dL (200); EST Glomerular Filtration Rate 67 mL/min (>60); Est Glom Filt Rate - Afr Amer 82 mL/min (>60); Glucose 97 mg/dL (74-106); High Density Lipoprotein 52 mg/dL; Potassium 3.8 mmol/L (3.5-5.1); Sodium Level 139 mmol/L (136-145); Triglycerides 112 mg/dL; Very Low Density Lipoprotein 22 mg/dL (5-40)
== END | disposition home or self-care (01) ==
LOC: MTLAB 09:44
PROVIDERS: PCP Family Medicine; Visit Provider Family Medicine
DX: Z00.00 Encounter for general adult medical examination without abnormal findings (principal)
CPT/HCPCS: 36415; 80048; 80061; 82306

== ENCOUNTER → 2023-07-02 | Outpatient (CLI) | payer OTHER, SELFPAY ==
--- NOTE | 2023-07-02 15:55 | BD_ITS ---
STUDY: DUAL ENERGY X-RAY ABSORPTIOMETRY / DXA REASON FOR EXAM: Female, 62 years old. F41.9 TECHNIQUE: Bone Mineral Density (BMD) measurements of lumbar spine and bilateral hips were obtained. COMPARISON: Comparison is made with prior study dated March 06, 2021. FINDINGS: Lumbar Spine (L1-L4): g/cm2 (0.887) / T-score (-1.9) / Z-score (-0.3) Findings are suggestive of osteopenia with a moderate fracture risk. Left Femur Total: g/cm2 (0.709) / T-score (-1.9) / Z-score (-0.8) Left Femoral Neck: g/cm2 (0.593) / T-score (-2.3) / Z-score (-0.9) Right Femur Total: g/cm2 (0.744) / T-score (-1.6) / Z-score (-0.5) Right Femoral Neck: g/cm2 (0.672) / T-score (-1.6) / Z-score (-0.2) The T-Scores on the most recent prior examination were: Lumbar Spine (L1-L4): There has been worsening of bone density since the previous examination. Left Femur Total: which represents a worsening of 5.8%. Right Femur Total: which represents a worsening of 8.2%. BD/Dexa Bone Density Study IMPRESSION: The patient is considered osteopenic as outlined below according to World [employer] Organization (WHO) criteria with a high fracture risk. There has been worsening of bone density since the previous examination. Reference Information: The T-score is the number of standard deviations above or below the standard which is normal for young adults at their peak bone mineral density. The World Health Organization (WHO) interprets the T-scores as follows: Above -1 Normal bone density Between -1 and -2.5 Osteopenia Equal to / or below -2.5 Osteoporosis As a practical clinical guideline, osteopenia may be graded as follows: Mild -1 through -1.5 Moderate -1.6 through -2.0 Severe -2.1 through -2.4 The Z-score is the number of standard deviations above or below age-matched controls. A Z-score of less than -1.5 would be considered abnormal. References: 1. NIH Osteoporosis and Related Bone Diseases www osteo.org 2. International Society for Clinical Densitometry www iscd.org 3. National Osteoporosis Foundation www nof.org Electronically Signed: Constantine Sebastian MD at 15:21 EDT ,
== END | disposition home or self-care (01) ==
PROVIDERS: PCP Family Medicine; Referring Provider Family Medicine; Visit Provider Family Medicine
DX: F41.9 Anxiety disorder, unspecified (principal)
CPT/HCPCS: 77080

== ENCOUNTER → 2023-11-18 | Outpatient (CLI) | payer OTHER, SELFPAY ==
--- OUTSIDE RECORDS SUMMARY | 2023-11-18 11:04 | XMS RPT_ITS | CCD ---
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 Name Role Phone Paula Gómez Unavailable Unavailable Pending Provider Unavailable Unavailable Problems Active Problems Problem Classification Problem Date Documented Da te Episodic/Chronic Fracture of lower limb (1 source) Closed fracture of fifth metatarsal bone; Translations: [Closed displaced fracture of fifth metatarsal bone of left foot with routine healing, subsequent encounter] Episodic Past or Other Problems Problem Classification Problem Date Documented Da te Episodic/Chronic NEGATED: Highlighted row has not occurred!Residual codes; unclassified (20 sources) Disease Episodic Results Test Name Value Interpretation Reference Range Facil ity Encounters Encounter Date Encounter Type Care Provider Facility Start: 09-24-2020 Patient encounter procedure Paula Gómez [facility] Work Phone: Start: 09-19-2020 Patient encounter procedure Paula Gómez [facility] Work Phone: Start: 09-12-2020 Patient encounter procedure Paula Gómez [facility] Work Phone: Start: 09-05-2020 Patient encounter procedure Paula Gómez [facility] Work Phone: Start: 08-27-2020 Patient encounter procedure Paula Gómez [facility] Work Phone: Start: 08-22-2020 Patient encounter procedure Paula Gómez [facility] Work Phone: Start: 08-15-2020 Patient encounter procedure Paula Gómez [facility] Work Phone: Start: 08-08-2020 Patient encounter procedure Paula Gómez [facility] Work Phone: Start: 08-01-2020 Patient encounter procedure Paula Gómez [facility] Work Phone: Start: 07-30-2020 Patient encounter procedure Paula Gómez [facility] Work Phone: Start: 07-25-2020 Patient encounter procedure Paula Gómez [facility] Work Phone: Start: 07-23-2020 Patient encounter procedure Paula Gómez [facility] Work Phone: Start: 07-18-2020 Patient encounter procedure Paula Gómez [facility] Work Phone: Start: 07-16-2020 Patient encounter procedure Paula Gómez [facility] Work Phone: Start: 07-09-2020 Patient encounter procedure Paula Gómez [facility] Work Phone: Start: 07-06-2020 Patient encounter procedure Paula Gómez [facility] Work Phone: Start: 07-04-2020 Patient encounter procedure Paula Gómez [facility] Work Phone: Start: 06-29-2020 Patient encounter procedure Paula Gómez [facility] Work Phone: Start: 06-25-2020 Patient encounter procedure Paula Gómez [facility] Work Phone: Start: 06-22-2020 Patient encounter procedure Paula Gómez [facility] Work Phone: Start: 06-18-2020 Patient encounter procedure Paula Gómez [facility] Work Phone: Start: 06-15-2020 Patient encounter procedure Paula Gómez [facility] Work Phone: Start: 06-11-2020 Patient encounter procedure Paula Gómez [facility] Work Phone: Start: 06-01-2020 Patient encounter procedure Paula Gómez [facility] Work Phone: Social History Date Type Detail Facility Assertion Tobacco smoking consumption unknown (finding) [facility] Work Phone: Functional Status Date Assessment Result Facility NEGATED: Highlighted row Functional performance Functional status health issues are not documented Disease [facility] Work Phone: Mental Status Date Assessment Result Facility NEGATED: Highlighted row Cognitive function [Interpretation] Cognitive status health issues are not documented Disease [facility] Work Phone: Summary Purpose Family History No Family History Records FoundNo Family History Records Found Advance Directives No Advanced Directives Records FoundNo Advanced Directives Records Found Additional Source Comments INFORMATION SOURCE (unrecogn ized section and content) DATE CREATED AUTHOR AUTHOR'S MARIANA ATION 09/28/2020 [employer] FOR RECORDS PERTAINING TO PATIENTS WHO ARE OR HAVE BEEN ENROLLED IN A CHEMICAL DEPENDENCY/SUBSTANCEABUSE PROGRAM, SOME INFORMATION MAY BE OMITTED. This clinical summary was aggregated from multiple sources. Caution should be exercised in using it in the provision of clinical care. This summary normalizes information from multiple sources, and as a consequence, information in this document may materially change the coding, format and clinical context of patient data. In addition, data may be omitted in some cases. CLINICAL DECISIONS SHOULD BE BASED ON THE PRIMARY CLINICAL RECORDS. [facility] provides no warranty or guarantee of the accuracy or completeness of information in this document.
--- NOTE | 2023-11-18 11:12 | RAD_ITS ---
INDICATION: LUMBAR RADICULOPATHY EXAMINATION/TECHNIQUE: X-RAY - XR Spine Lumbar Min 4 Views COMPARISON: None. FINDINGS: VERTEBRAE: Preserved vertebral body height. No fracture. There is grade 1 anterolisthesis of L5 on S1. No distinct pars defects noted. Preservation of the normal lumbar lordosis. Diffuse facet atrophy changes from L3 to S1. DISCS: Disc spaces are maintained. INCLUDED ABDOMEN: Included bowel gas pattern is non-obstructive. RAD/L/S Spine Min 4 Views IMPRESSION: 1. No fractures or destructive bony process. 2. Grade 1 anterolisthesis of L5 on S1. No distinct pars defects noted. 3. Diffuse facet arthropathy from L3 to S1. Electronically Signed: Librado Lyons MD at 22:13 EST ,
== END | disposition home or self-care (01) ==
PROVIDERS: PCP Family Medicine; Referring Provider Family Medicine; Visit Provider Family Medicine
DX: M54.16 Radiculopathy, lumbar region (principal)
CPT/HCPCS: 72110

== ENCOUNTER → 2024-04-23 | Outpatient (CLI) | payer OTHER, SELFPAY ==
--- NOTE | 2024-04-23 09:15 | MRI_ITS ---
STUDY: MRI LUMBAR SPINE WITHOUT CONTRAST REASON FOR EXAM: Female, 63 years old. Lumbar strain, lumber radiculopathy, pain TECHNIQUE: Standardized fat and water weighted pulse sequences were obtained in the sagittal and axial planes. COMPARISON: CT abdomen and pelvis with contrast 02/17/2019. Lumbar spine radiographs 11/18/2023. FINDINGS: T10-T11, T11-T12 and T12-L1: (Sagittal only). Normal endplates. Normal disc height, hydration and morphology. No ventral extradural defects. Normal central canal and bilateral intervertebral neural foramina. Normal lumbar lordosis. There is no substantial scoliosis. Normal conus medullaris that terminates at the lower L1 vertebral body level. L1-2: Normal endplates. Normal disc height, hydration and morphology. Normal bilateral facet joints. Normal central canal and bilateral lateral recesses. Normal bilateral intervertebral neural foramina. L2-3: Normal endplates. Normal disc height, hydration and morphology. Normal bilateral facet joints. Normal central canal and bilateral lateral recesses. Normal bilateral intervertebral neural foramina. L3-4: Normal endplates. Normal disc height, hydration and morphology. Normal bilateral facet joints. Normal central canal and bilateral lateral recesses. Normal bilateral intervertebral neural foramina. L4-5: Normal endplates. Normal disc height, hydration and morphology. Normal bilateral facet joints. Normal central canal and bilateral lateral recesses. Normal bilateral intervertebral neural foramina. L5-S1: Minimal left-sided Modic type I degenerative vertebral marrow edema underneath the vertebral endplates. Mild disc space height narrowing. Grade 1 degenerative anterolisthesis of L5 on S1. Pronounced bilateral L5-S1 degenerative facet arthropathy. Moderately pronounced central canal stenosis with an AP canal diameter of 6.4 mm. Normal bilateral lateral recesses. Moderate stenosis of the left intervertebral neuroforamen due to pronounced disc space height narrowing and grade 1 anterolisthesis. The posterior annulus is touching the undersurface of the left L5 nerve without definite displacement. Moderate stenosis of the right intervertebral neuroforamen without impingement of the right L5 nerve. Normal visualized sacral ala. Normal visualized paraspinous soft tissue structures. MRI/Spine Lumbar (Routine) IMPRESSION: 1. Minimal left-sided L5-S1 intervertebral osteochondritis (Modic type I), pronounced bilateral L5-S1 degenerative facet arthropathy, grade 1 degenerative anterolisthesis of L5 on S1, moderately pronounced central canal stenosis with an apical diameter of 6.4 mm and moderate stenosis of the left intervertebral neuroforamen due to anterolisthesis and posterior annulus touching the undersurface of the left L5 nerve without definite displacement. Moderate stenosis of the right intervertebral neuroforamen without impingement of the right L5 nerve. 2. Normal remainder of the lumbar spine. Electronically Signed: Vinod Matos MD at 10:23 EDT ,
== END | disposition home or self-care (01) ==
LOC: MRI 08:42
PROVIDERS: PCP Family Medicine; Referring Provider Family Medicine; Visit Provider Family Medicine
DX: M54.16 Radiculopathy, lumbar region (principal); S39.012A Strain of muscle, fascia and tendon of lower back, initial encounter; X58.XXXA Exposure to other specified factors, initial encounter
CPT/HCPCS: 72148

== ENCOUNTER 2024-08-15 12:20 | Inpatient (IN) | payer OTHER, SELFPAY ==
[2024-08-02 11:43] LABS: Absolute Lymphocyte Count 1.43 X10^3/uL (0.83-4.51); Absolute Neutrophil Count 3.4 X10^3/uL (2.0-7.7); Basophil# 0.06 X10^3/uL; Basophil% 1.1 % (0-1); Eosinophil# 0.19 X10^3/uL; Eosinophils% 3.5 % (0-5); Hematocrit 39.8 % (37-47); Hemoglobin 12.5 g/dL (12.0-15.0); Lymphocyte # 1.43 X10^3/ul (0.83-4.51); Lymphocyte % 26.1 % (19-41); Mean Corp Hgb Conc 31.4 g/dL (32-36); Mean Corpuscular Hgb 28.9 pg (27.0-32.0); Mean Corpuscular Volume 92.1 fL (81-99); Mean Platelet Vol. 10.1 fl (6.2-12.0); Monocyte# 0.37 X10^3/uL; Monocyte% 6.8 % (0-10); NRBC Flagged by Analyzer 0 % (0-5); Neutrophil # 3.42 X10^3/uL (2.7-7.7); Neutrophil % 62.3 % (47-70); Platelet Count 194 K/mm3 (150-450); Red Blood Count 4.32 M/mm3 (4.2-5.4); White Blood Count 5.5 K/mm3 (4.4-11.0)
[2024-08-02 12:27] LABS: Anion Gap 8 (5-15); BUN 24 mg/dL (7-18); BUN/Creat Ratio 24.9 RATIO (10-20); Calcium,Total 9.3 mg/dL (8.5-10.1); Chloride 108 mmol/L (98-107); Creatinine, Serum 0.96 mg/dL (0.55-1.02); EST Glomerular Filtration Rate 62 mL/min (>60); Est Glom Filt Rate - Afr Amer 75 mL/min (>60); Glucose 88 mg/dL (74-106); Potassium 3.6 mmol/L (3.5-5.1); Sodium Level 143 mmol/L (136-145)
[2024-08-02 12:31] LABS: Magnesium 2.6 mg/dL (1.6-2.6)
[2024-08-02 13:02] LABS: HIV - WCH Non-Reactive (Nonreactive); Hepatitis B Surface Antibody Non-Reactive; Hepatitis C Antibody Non-Reactive (Nonreactive)
[2024-08-03 05:08] LABS: Hepatitis A AB, Total Negative (Negative)
[2024-08-15] VITALS (20 sets, daily range): BP systolic 103–162; BP diastolic 55–91; PULSE 60–96; RESP 16–18; TEMP 36.1–36.8; O2SAT 94–100; BMI 24.5
[2024-08-15] MEDS: Magnesium 1 GM over 15 mins IV (06:18)
[2024-08-15] MEDS: Lactated Ringers 1,000 ML 15 ML IV (06:18)
[2024-08-15] MEDS: Acetaminophen 500 MG Tablet 1000 MG PO (06:19)
[2024-08-15 06:41] LABS: Bedside Glucose 138 mg/dL (74-106)
--- NOTE | 2024-08-15 07:02 | PCM.PRE.AN2 ---
ASA Classification* ASA Classification ASA Classification: 2 Assessment & Plan Anesthesia* Anesthesia Assessment Anesthesia Assessment: Discussed sedation and/or anesthesia options, risks, benefits, and alternatives with patient/parents/legal guardian/POA. Questions invited. The patient/parents/legal guardian/POA seems to understand and agrees to proceed with anesthesia plan. Reviewed the physical assessment, medical history, allergy history and patient home medications list prior to surgery/procedure/anesthetic and documented any changes. Performed airway and anesthesia risk assessments. Anesthesia Type Anesthesia Type: General Anesthesia Focused Assessment* Temperature: 98.2 F Pulse Rate: 72 Blood Pressure: 162/80 Respiratory Rate: 16 Pulse Ox: 99 Airway Assessment Mouth opens: >3 cm Mallampati Score: II Focused Labs Anesthesia Preop lab: CBC WBC 5.5 K/mm3 (4.4-11.0) 08/02/24 11:29 RBC 4.32 M/mm3 (4.2-5.4) 08/02/24 11:29 Hgb 12.5 g/dL (12.0-15.0) 08/02/24 11:29 Hct 39.8 % (37-47) 08/02/24 11:29 Plt Count 194 K/mm3 (150-450) 08/02/24 11:29 CHEMISTRY Potassium 3.6 mmol/L (3.5-5.1) 08/02/24 11:29 Sodium 143 mmol/L (136-145) 08/02/24 11:29 Magnesium 2.6 mg/dL (1.6-2.6) 08/02/24 11:26 BUN 24 mg/dL (7-18) H 08/02/24 11:29 Creatinine 0.96 mg/dL (0.55-1.02) 08/02/24 11:29 Glucose 88 mg/dL (74-106) 08/02/24 11:29 POC Glucose 138 mg/dL (74-106) H 08/15/24 06:14 COAG Pre-Assessment Diagnosis/Proposed Procedure Planned Operative Procedure(s): ERAS 360 Lumbar Fusion L5-S1 Anesthesia History 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 When Was Last Pacemaker Check QUESTION #4 FULL TEXT: You/Your Family Experience fever (hyperthermia) with Anesthesia Last Oral Intake Last Oral intake: Last Oral Intake NPO since 03:30 08/15/24 06:05 Meds taken in AM with sips of No 08/15/24 06:05 water? 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 operator vacuum pan salt Female Yes 08/02/24 10:25 HX of Motion Sickness No 08/02/24 10:25 HX of N/V After Surgery No 08/02/24 10:25 Non-Smoker Yes 08/02/24 10:25 Duration of Surgery greater Yes 08/02/24 10:25 than 60 minutes Number of Risk Factors 3 08/02/24 10:25 PONV Score Moderate Risk 08/02/24 10:25 Height & Weight Height & Weight: Anesthesia: Height & Weight Height 5 ft 1 in 08/15/24 06:05 Weight: 59 kg 08/15/24 06:05 Body Mass Index (BMI) 24.5 08/15/24 06:05 Respiratory Assessment Respiratory Assessment - 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 Has anyone observed you stop No 08/02/24 10:25 breathing during sleep? STOP Results Negative 08/02/24 10:25 QUESTION #5 FULL TEXT : Do you snore loudly (louder than talking or can be heard through closed doors)? 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 Specify any problems Hx of Preganancy in last 3 No 08/02/24 10:25 Months Nurse Filling Out Transfusion VCHRISTIN 08/02/24 10:25 & Questions: Date: 08/02/24 08/02/24 10:25 Time: 10:26 08/02/24 10:25 Patient unable to answer at this time (ie. confused, unrespo /Reproduction History /Reproductive History - mixer operator vacuum pan salt: /Reproductive Hx- mixer operator vacuum pan salt Hx Now No 08/02/24 10:25 Gestational Age (in weeks): EDC: Hx Hx Para Hx Section SAB No 08/02/24 10:25 Active Medications Active Medications: Current Medications Generic Name Dose Route Start Last Admin Trade Name Kalebq PRN Reason Stop Dose Admin Acetaminophen 1,000 mg 08/15/24 07:30 08/15/24 06:19 Acetaminophen 500 Mg Tablet PO 08/15/24 07:31 1,000 mg X1 ONE Administration Magnesium Sulfate 1 gm/ 102 mls @ 408 mls/hr 08/15/24 07:30 08/15/24 06:18 Dextrose IV 08/15/24 07:44 408 mls/hr X1 ONE Administration Clindamycin Phosphate 900 mg in 50 mls @ 75 mls/hr 08/15/24 07:30 Cleocin IV 08/15/24 08:09 PREOP ONE Lactated Ringer's 1,000 mls @ 15 mls/hr 08/15/24 05:45 08/15/24 06:18 IV 08/20/24 19:04 15 mls/hr .Q48H KATIE Administration Protocol Insulin Human Lispro 1 - 6 unit 08/15/24 07:30 Insulin Lispro 100 Unit/Ml Insuln.Pen SC Q4H PRN PRN BG>/= 180, SEE PROTOCOL Protocol PFSH Medical History MRSA (methicillin resistant staph aureus) culture positive Wears glasses Post-menopausal Depression Anxiety History of steroid therapy Arthritis Back pain Migraine headache History of IBS History of pain when walking Chronic cholecystitis Cholelithiasis Acid reflux Diarrhea Nausea and vomiting Abdominal pain Home Medications ?Medication ?Instructions ?Recorded ?Last Taken ?Type cholecalciferol (vitamin D3) 50 2,000 unit PO DAILY SUPPLEMENT 02/10/19 08/13/24 History mcg (2,000 unit) capsule acetaminophen 500 mg tablet 500 mg PO Q6H PRN pain 05/11/24 08/12/24 History (Tylenol Extra Strength) lactobacillus combination no.4 3 3,000 mmu cells PO DAILY SUPPLEMENT 05/11/24 08/13/24 History billion cell capsule (Probiotic) meloxicam 15 mg tablet 15 mg PO DAILY PAIN 05/11/24 08/13/24 History gabapentin 100 mg capsule 100 mg PO QHS PAIN 08/02/24 08/12/24 History tramadol 50 mg tablet 25 mg PO TID PRN pain 08/02/24 08/08/24 History vitamin A 2,500 unit-vit C 100 1 cap PO DAILY SUPPLEMENT 08/02/24 08/13/24 History mg-biotin 2,500 uyt-zldd-cnirgs capsule (Bvat-Kgzm-Guuu (vit A,P-muhxgc-Hv-Cu)) magnesium citrate 125 mg capsule 250 mg PO DAILY supplem 08/15/24 08/13/24 History Allergy/AdvReac Type Severity Reaction Status Date / Time diphenhydramine (From Allergy Severe Anaphylaxis Verified 08/15/24 05:54 Benadryl) Antihistamines - Alkylamine Allergy Anaphylaxis Verified 08/15/24 05:54 Antihistamines - Ethanolamine Allergy Anaphylaxis Verified 08/15/24 05:54 Antihistamines - Allergy Anaphylaxis Verified 08/15/24 05:54 Ethylenediamine Antihistamines - Piperazine Allergy Anaphylaxis Verified 08/15/24 05:54 Antihistamines - Piperidine Allergy Anaphylaxis Verified 08/15/24 05:54 cefaclor (From Ceclor) Allergy Other Verified 08/15/24 05:54 erythromycin base Allergy Other Verified 08/15/24 05:54 hydroxyzine HCl (From Atarax) Allergy Other Verified 08/15/24 05:54 Penicillins Allergy Hives Verified 08/15/24 05:54 baclofen AdvReac sleepy Verified 08/15/24 05:54 cyclobenzaprine (From AdvReac sleepy Verified 08/15/24 05:54 Flexeril) tramadol AdvReac lighthead Verified 08/15/24 05:54 Family History Father Arthritis Heart disease Hypertension Cancer skin cancer Mother Diabetes Sister Cancer ovarian cancer Surgical History History of laparoscopic cholecystectomy (~03/25/19) History of right inguinal hernia repair Social History household members: spouse Smoking Status: Never smoker alcohol intake: current alcohol intake frequency: holidays/special occasions only Review of Systems (Anesthesia) ROS Narrative System reviewed and no additional complaints, except as documented.
--- NOTE | 2024-08-15 07:18 | HP.PCM_ITS ---
History and Physical Date of Admission: 08/15/24 MR#: [id number] Acct: [id number] Name: FUNMILAYO SYKES Rep #: [id number] : 1960 Provider: Dr. Thomas Casey MD Age/Sex: 63/F Location[place] [facility] [place] Status: Signed Intake Vital Signs 05/11/2408:52 Height 5 ft 1.5 in Weight: 127 lb 6 oz BMI 23.6 Intake Visit Reasons: lumbar spine Accompanied by: Other Family Is patient in pain?: Yes Pain scale (1-10): 5 Allergies Antihistamines - Alkylamine Allergy (Verified 08/05/24 15:01) AnaphylaxisAntihistamines - Ethanolamine Allergy (Verified 08/05/24 15:01) AnaphylaxisAntihistamines - Ethylenediamine Allergy (Verified 08/05/24 15:01) AnaphylaxisAntihistamines - Piperazine Allergy (Verified 08/05/24 15:01) AnaphylaxisAntihistamines - Piperidine Allergy (Verified 08/05/24 15:01) Anaphylaxiscefaclor (From Ceclor) Allergy (Verified 08/05/24 15:01) Othererythromycin base Allergy (Verified 08/05/24 15:01) Otherhydroxyzine HCl (From Atarax) Allergy (Verified 08/05/24 15:01) OtherPenicillins Allergy (Verified 08/05/24 15:01) Hivesbaclofen Adverse Reaction (Verified 08/05/24 15:01) sleepycyclobenzaprine (From Flexeril) Adverse Reaction (Verified 08/05/24 15:01) sleepytramadol Adverse Reaction (Verified 08/05/24 15:01) lighthead Medications ?Medication ?Instructions ?Recorded ?Confirmed ?Type cholecalciferol (vitamin D3) 50 2,000 unit PO DAILY SUPPLEMENT 02/10/19 08/05/24 History mcg (2,000 unit) capsule acetaminophen 500 mg tablet 500 mg PO Q6H PRN pain 05/11/24 08/05/24 History (Tylenol Extra Strength) lactobacillus combination no.4 3 3,000 mmu cells PO DAILY SUPPLEMENT 05/11/24 08/05/24 History billion cell capsule (Probiotic) magnesium 200 mg tablet 200 mg PO DAILY SUPPLEMENT 05/11/24 08/05/24 History meloxicam 15 mg tablet 15 mg PO DAILY PAIN 05/11/24 08/05/24 History gabapentin 100 mg capsule 100 mg PO QHS PAIN 08/02/24 08/05/24 History tramadol 50 mg tablet 50 mg PO TID PRN pain 08/02/24 08/05/24 History vitamin A 2,500 unit-vit C 100 1 cap PO DAILY SUPPLEMENT 08/02/24 08/05/24 History mg-biotin 2,500 tvk-jftp-vynszv capsule (Xnbj-Eniy-Sueh (vit A,K-ygucxb-Dt-Cu)) PFSH Medical History MRSA (methicillin resistant staph aureus) culture positive Wears glasses Post-menopausal Depression Anxiety History of steroid therapy Arthritis Back pain Migraine headache History of IBS History of pain when walking Chronic cholecystitis Cholelithiasis Acid reflux Diarrhea Nausea and vomiting Abdominal pain Surgical History History of laparoscopic cholecystectomy (~03/25/19) History of right inguinal hernia repair Family History Father Arthritis Heart disease Hypertension Cancer skin cancerMother DiabetesSister Cancer ovarian cancer Social History household members: spouse Smoking Status: Never smoker alcohol intake: current alcohol intake frequency: holidays/special occasions only HPI lumbar spine Details: This documentation accurately reflects the service provided and the decisions made by me, Dr. Thomas Casey MD 08/05/24 7315. Part of today?s visit was documented by Radha SALAS , acting as scribe. FUNMILAYO SYKES is a 63 year old F here today for pre-op d.o.s 08/15/24 Patient is having a 360 Lumbar Fusion L5-S1. HPI from 05/11/24: FUNMILAYO SYKES is a 63 year old F here today for Lumbar spine. Patient states her back has bothered her since Oct. Patient states no accidents to her back or injury. Says that she has had back pain on and off for years. Patient did go to PT and they had her stop and get a MRI done because she wasn't progressing. Patient pain is in the central lower back. Patient states she does have pain that radiates down her leg but mostly the right side. About 2 weeks ago is when the pain started to radiate down legs. Patient does have numbness that has happen and goes down the right leg to her toes down the back of her leg. She has had pain down her R leg to her toes. Occasionally will get pain down the L side. Walking helps her pain some. Patient hasn't had injections in her back. She did take a course of prednisone with minimal benefit. She isn't a fan of needles and appears that she would refuse injections. Patient takes Extra Strength Tylenol and Mobic as needed. Patient hasn't tried ice or heat for her back. Ortho Exam General General: Yes no acute distress Neurologic: Yes alert and Yes oriented x3 Spine SPINE TESTING CERVICAL THORACIC LUMBAR Musculoskeletal Strength 0=absent - 5=normal Details: Neurological exam of the lower extremities shows 5x5 power in the lower extremities. L EHL appears weaker than R. Midline tenderness and minimal paraspinal tenderness on both sides. Pain with spinal extension and flexion. No hyperreflexia in lower extremities. Coding Level of Care Code Off vis,est,level 4 Diagnoses Spondylolisthesis, lumbar region M43.16 Time Spent (min) 35 Assessment and Plan Assessment and Plan (1) Spondylolisthesis, lumbar region: Status: Acute Plan Again reviewed previous MRI and xrays with patient. L5-S1 show grade 1 spondylolisthesis, likely degenerative with dynamic instability on flexion- extension views. There is significant central and lateral recess as well as foraminal stenosis at this level. Subtle spondylolisthesis at L4-5 also noticed. Again reviewed treatment options. I explained to the patient and family the imaging findings in detail. Explained options for treatment including continued nonsurgical treatment versus surgery. Patient has tried and failed PT. she declines injections due to the fear of needles. Other nonsurgical modalities such as traction and TENS unit were discussed. Surgery may be appropriate at a time when she has exhausted nonsurgical treatment and her symptoms are affecting her quality of life. Patient says that she is avoiding activities that she knows are causing her pain and her overall function is declining with time. Walking longer distances and sitting for long peers of time has become a problem. 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 I recommend L5-S1 anterior posterior fusion with indirect decompression. Patient is here today for a preop L5-S1 on 08/15/24. Reviewed the benefits and risks of surgery. Risks of surgery include bleeding, infection, visceral injury, ileus, hardware failure, pseudoarthrosis, adjacent segment degeneration, pneumonia, DVT, pulmonary embolism, atelectasis, gait abnormality, persistent pain, stretch injuries, chance for future surgeries. Patient understands and agrees to proceed with surgery. Explained in detail the procedure of the lumbar fusion. Discussed post surgery restrictions such as no bending, lifting, or twisting. Answered all questions that she had today. Consent was signed. Patient is in agreement.
--- NOTE | 2024-08-15 07:30 | RAD_ITS ---
INDICATION: ERAS 360 LUMBAR FUSION L5-S1 EXAMINATION/TECHNIQUE: X-RAY - XR Spine Lumbar 2 or 3 Views COMPARISON: 05/11/2024 FINDINGS: Views of the lumbar spine were obtained intraoperatively on a C-arm for fusion of the last lumbar and first sacral vertebrae with pedicle screws, anterior plate, screws and disc implant. Images were obtained for documentation. Fluoroscopy time: 129 seconds. Number of fluoroscopic images: 15. Radiation dose: 39.8 mGy. RAD/Lumbar Spine 2 or 3 Views IMPRESSION: Intraoperative views obtained for documentation. Electronically Signed: Yvoany Rosales MD at 12:36 EST ,
[2024-08-15] MEDS: Clindamycin 900 MG/50 ML BAG 75 MG IV ×2 (07:40→15:33)
--- NOTE | 2024-08-15 12:09 | PCM.OPRPT ---
Operative Report (Standard) Operative Information Surgery/Procedure Performed: L5-S1 anterior lumbar interbody fusion Surgeon: Thomas Casey Date of Procedure: 08/15/24 Procedure Start Time: 08:11 Procedure Stop Time: 12:14 Pre-Operative Diagnosis: L5-S1 spondylolisthesis with stenosis with neurogenic claudication Post-Operative Diagnosis: Same Select all DRAINS/GRAFTS/IMPLANTS that apply: Graft Graft details: Allograft cancellous bone chips, DBX, autologous bone marrow aspirate and Implanted device Implanted device details: 4WEB anterior spine truss system cage, Aegis 4 hole plate Type of Anesthesia: General Estimated Blood Loss: 50 cc Specimen collected: No Description of surgery: Preoperative diagnosis: L5-S1 spondylolisthesis, stenosis with neurogenic claudication Postoperative diagnosis: Same Name of procedures L5-S1 anterior lumbar interbody fusion (ALIF), supine: ? L5-S1 anterolateral spinal fusion 46993 ? L5-S1 insertion of cage [id number] . L5-S1 anterior spinal instrumentation [id number] ? Bone graft aspirate S1 body same incision ? Allograft cancellous chips Attending Surgeon: Dr. Thomas Casey Co-surgeon: Dr. Blanco Patten Estimated blood loss: 50 mL Anesthesia: General Complications: None Indications: Patient is a 63-year-old pleasant lady who has had a long history of low back pain and right worse than left lower extremity radiation, difficulty walking distances. Xrays & MRI revealed grade 1 L5-S1 spondylolisthesis with stenosis. After undergoing a prolonged period of nonoperative treatment, the patient elected to undergo surgical decompression & fusion. All surgical options were discussed with the patient including anterior and posterior approaches. All risks and benefits associated with the procedure were explained to the patient. The risks include but are not limited to infection, bleeding, injury to nerves and vessels including major vessels like IVC and aorta, persistent paresthesia, persistent pain, dural tear, need for further procedures, adjacent segment degeneration, pseudoarthrosis, hardware failure, retrograde ejaculation, paralytic ileus, etc. Procedure: The patient was identified in the preoperative holding suite using Unique patient identifiers. Skin was marked, consent was reviewed, and all questions were answered. The patient was then brought back to the operative room. A surgical timeout was performed to make sure correct procedure was being done on the correct patient and all operative room staff were on the same page. General endotracheal anesthesia was then given to the patient. Dennis catheter was inserted. The patient was then carefully positioned in supine position with pillows below the knees on a regular OR table. The surgical area was prepped and draped in usual fashion. 2 g of Ancef was injected IV as preoperative antibiotic. A final timeout was then again done just before starting the procedure. A transverse Pfannenstiel incision was taken in the suprapubic area along the skin crease. Sharp dissection with Bovie was carried out up to the anterior rectus sheath. Anterior rectus sheath was incised vertically close to the midline. Left rectus muscle was retracted laterally. Preperitoneal space was explored to identify inferior epigastric vessels on the left side. Sponge sticks were utilized to move the bowel and peritoneum ayo-hf-vom-way staying within the retroperitoneal plane. Welcu retractor system was positioned and the retractor blades were applied. Left common iliac artery and vein were recognized and traced proximally up to the promontory. All peritoneal contents were retracted towards the right. The promontory was cleared with the help of peanut elevator. Median sacral vessels were identified and ligated and divided. The annulus of the disc was identified and a marker x-ray was performed to confirm the levels. The interval between the bifurcated vessels was developed and retractors were placed to expose the L5-S1 disc. Annulotomy was done with a long handled knife. Pituitary was used to remove disc material. Sharp Monteiro was used to denude the endplate cartilage. Curettes were used to prepare the endplates. Near complete discectomy was performed. Trials of serially increasing sizes were used. A Jamshidi needle was used to aspirate bone marrow from the S1 vertebral body and this aspirate was mixed with the allograft bone chips and DBX. 4WEB ALIF Truss system Cage medium footplate, 14 mm height and 16 degrees lordosis was packed with cancellous allograft bone chips mixed with bone marrow aspirate and DBX. This was inserted into the L5-S1 level. AP and lateral C-arm pictures were taken to confirm good position of the cage. The lower L5 and upper S1 bodies were then exposed and retractors were applied in order to position a plate. An Aegis anterior lumbar 4-hole plate not integrated with the cage was positioned and temporary pins were placed. 24 mm screws were then placed to in each L5 and S1 bodies and confirmed on AP lateral C-arm to be in good position. Thorough irrigation was given. Additional bone graft was placed underneath the plate. Hemostasis was confirmed. The retractor blades were removed. Closure was done in layers with a continuous strand of # 1 Vicryl for the indirect sheath. 2-0 Vicryl was used for subcutaneous tissue and 4-0 for Monocryl for the skin. Steri-Strips were applied and 4 x 4 gauze and Tegaderm were applied. Surgical Findings: See operative note Mailing Section Clerk studio couch frame builder: Yes Needle Maker: Blanco Patten Tasks completed by assisted living associate: Opening, Closing, Dissecting tissue, Removing tissue, Implanting device, Altering tissue, Hemostasis: Electrocautery, Retracting and Other (Co-surgeon for anterior approach-vascular surgery) Additional intellectual property legal assistant?: Yes Additional Veneer Trimmer #2: Yu Hernandez Tasks completed by intellectual property legal assistant #2: Closing and Retracting Complications Complications: No Procedures Musculoskeletal [id number]: Other Procedure See Report
[2024-08-15] MEDS: Ropivacaine 0.5% 30 ML Vial (12:14)
--- NOTE | 2024-08-15 12:33 | PCM.POST.ANE ---
Anesthesia: Postop Eval I Current Vital Signs Temperature: 97.4 F Pulse Rate: 88 Blood Pressure: 134/91 Respiratory Rate: 16 Pulse Ox: 100 Oxygen Delivery Method: Simple Mask Oxygen Flow Rate (L/min): 6 Assessment Airway patent: Yes Spontaneous unlabored respirations: Yes Mental status: Awake and Calm nausea: No Vomiting: No Anesthesia Complication: No Fluid Hydration Crystalloid volume administer (ml): 1,400 Total IV fluid infused: 1,400 Progress Note Anesthesia document: Postop Eval 1 completed: Yes
--- NOTE | 2024-08-15 12:45 | OP.PCM_ITS ---
Operative Report (Standard) Operative Information Surgery/Procedure Performed: L5-S1 posterior spinal instrumented fusion Surgeon: Thomas Casey Date of Procedure: 08/15/24 Procedure Start Time: 08:11 Procedure Stop Time: 12:14 Pre-Operative Diagnosis: L5-S1 spondylolisthesis, stenosis with neurogenic claudication Post-Operative Diagnosis: Same Select all DRAINS/GRAFTS/IMPLANTS that apply: Graft Graft details: Allograft cancellous bone chips, DBX, autologous bone marrow aspirate and Implanted device Implanted device details: DePuy Viper prime pedicle screw system Type of Anesthesia: General Estimated Blood Loss: 50 cc Specimen collected: No Description of surgery: Preoperative diagnosis: L5-S1 spondylolisthesis, stenosis with neurogenic claudication Postoperative diagnosis: Same Name of procedures: L5-S1 posterior percutaneous pedicle screw instrumented fusion, prone: ? L5-S1 posterior spinal fusion 32443 ? L5-S1 posterior pedicle screw instrumentation 02995 ? Allograft cancellous chips Attending Surgeon: Dr. Thomas Casey Estimated blood loss: 50 mL (total for entire case) Anesthesia: General Complications: None Description of procedure: After the anterior procedure was complete, the patient was then turned supine. The patient was then transferred to Michael table in prone position. Back was prepped and draped in usual fashion. C-arm AP view was then taken. C-arm was positioned in a way that L5 was centralized and superior endplate of was parallel to the beam. Spinous process was centered between the pedicles. Midline was marked with skin marker and lateral borders of the pedicles were also marked. Skin marker was also utilized to kathia transversely across the middle of the pedicles at L5. 2 vertical paramedian incisions of 1 inch were placed. The fascia was incised vertically. Finger dissection was utilized to palpate the transverse process and facet joint. Viper Prime screws with towers were inserted and docked onto the transverse processes. This was then slowly moved medially to reach the superior articular process of L5. This was then confirmed on C-arm and then a mallet was utilized to drive the trocar into the pedicle going up to the medial wall of the pedicle on AP view. This was performed both sides. C-arm lateral view confirmed that the tip of the trocar was in the vertebral body, and the screw was advanced into the pedicle and vertebral body. This was repeated similarly at S1. Screw sizes were 7 x 45 mm at L5 and S1 on both sides. 40 mm precontoured titanium 5.5 mm lordotic mookie on both sides were then passed through the screw extensions and reduced down to the screws with the help of Depuy Viper instrumentation system on both sides. AP and lateral view of the C-arm showed good positioning of the screws and cages. Final tightening with the torque screwdriver was then completed. [place] was utilized to roughen the facet joint at L5-S1 on the right side. Cancellous allograft bone chips mixed with bone marrow aspirate were then placed over this decorticated area. Hemostasis was achieved. Closure was done in layers with 0 Vicryls for the fascia, 2-0 Vicryls for the subcutaneous tissue, and Monocryl for the skin. Dermabond was applied. Dressings were applied covered with Tegaderm. The patient was then turned supine onto a hospital bed. The patient was extubated and taken to PACU in stable condition. The patient tolerated the procedure well and no complications occurred. Depuy [place] cage & Viper Prime minimally invasive pedicle screw instrumentation system was utilized in this case. No dural tear was identified intraoperatively. I was present for the entirety of the case and performed the surgery. Surgical Findings: See operative note Instructor Watch Assembly executive director of marketing: Yes Supervisor Harvesting: Yu Hernandez Tasks completed by presser first: Closing, Implanting device and Retracting Complications Complications: No Procedures Musculoskeletal [id number]: Other Procedure See Report
--- NOTE | 2024-08-15 13:30 | SUR.PHASEI ---
attempted to do neuro checks with pt, she is able to be awaken however will not do push of pull but will wiggle her toes.
--- NOTE | 2024-08-15 13:49 | POSTOPAN2_ITS ---
Anesthesia Postop Eval I Sum Postop Eval Completion status Anesthesia document: Postop Eval 1 completed: Yes Anesthesia Postop Eval I Summary Anesthesia Postop Eval I Summary: Anesthesia Postop Eval I: Assessment Summary Airway patent Yes 08/15/24 12:33 REVIEW [email or web address] Spontaneous unlabored Yes 08/15/24 12:33 REVIEW NURSE.JANNA respirations Mental status Awake,Calm 08/15/24 12:33 REVIEW [email or web address].[email or web address] nausea No 08/15/24 12:33 REVIEW NURSE.[email or web address] Vomiting No 08/15/24 12:33 REVIEW NURSE.DARIANAOBEufemia Anesthesia Postop Eval I: Fluid Summary Crystalloid volume administer 1,400 08/15/24 12:33 REVIEW NURSE.[email or web address] (ml) Colloids volume administered ( ml) Blood Product volume administered (ml) Total IV fluid infused 1,400 08/15/24 12:33 REVIEW NURSE.DARIANAOBEufemia Anesthesia Postop Eval I: Summary Notes Anesthesia Complication No 08/15/24 12:33 REVIEW NURSE.JANNA Anesthesia Complication Comment: Post-operative progress note Anesthesia: Postop Eval II Evaluation Mental status: Awake Pain Level: 0 nausea: No Vomiting: No
--- NOTE | 2024-08-15 13:49 | PCM.POSTANE2 ---
Anesthesia Postop Eval I Sum Postop Eval Completion status Anesthesia document: Postop Eval 1 completed: Yes Anesthesia Postop Eval I Summary Anesthesia Postop Eval I Summary: Anesthesia Postop Eval I: Assessment Summary Airway patent Yes 08/15/24 12:33 MACHINE [email or web address].[email or web address] Spontaneous unlabored Yes 08/15/24 12:33 MACHINE INSPECTOR.JANNA respirations Mental status Awake,Calm 08/15/24 12:33 MACHINE INSPECTOR.[email or web address] nausea No 08/15/24 12:33 MACHINE INSPECTOR.[email or web address] Vomiting No 08/15/24 12:33 MACHINE INSPECTOR.DARIANAOBEufemia Anesthesia Postop Eval I: Fluid Summary Crystalloid volume administer 1,400 08/15/24 12:33 MACHINE INSPECTOR.[email or web address] (ml) Colloids volume administered ( ml) Blood Product volume administered (ml) Total IV fluid infused 1,400 08/15/24 12:33 MACHINE INSPECTOR.DARIANAOBEufemia Anesthesia Postop Eval I: Summary Notes Anesthesia Complication No 08/15/24 12:33 MACHINE INSPECTOR.JANNA Anesthesia Complication Comment: Post-operative progress note Anesthesia: Postop Eval II Evaluation Mental status: Awake Pain Level: 0 nausea: No Vomiting: No
[2024-08-15] MEDS: Ondansetron 4 MG/2 ML Vial IV (15:33)
[2024-08-15] MEDS: Methocarbamol 500 MG Tablet 1000 MG PO ×2 (16:05→21:40)
--- NOTE | 2024-08-15 17:03 | PN.HOSP_ITS ---
Reason for Visit Reason for Visit: Chronic low back pain with neurogenic claudication Subjective Subjective Patient is a 63-year-old female with a past medical history of chronic pain related to the above who presented to [facility] for an elective L5-S1 posterior spinal fusion. Patient takes no chronic medications that are not related to chronic pain issues. She does have a documented history of acid reflux but is on no chronic medication for this. She does have a history of cholelithiasis and has had a cholecystectomy previously. We have been consulted postoperatively for postoperative management of chronic medical issues. Objective Data Objective Data Vital Signs: Vital Signs Temp Pulse Resp BP Pulse Ox O2 Del Method O2 Flow Rate 97.4 F L 93 16 126/80 H 97 Nasal Cannula 2 08/15/24 15:19 08/15/24 15:19 08/15/24 15:19 08/15/24 15:19 08/15/24 15:19 08/15/24 15:19 08/15/24 15:29 Oxygen Flow Rate (L/min) 2 Oxygen Delivery Method Nasal Cannula Weight: 59 kg Body Mass Index (BMI) 24.5 Intake & Output: Intake and Output for Last 24 Hours 08/13/24 08/14/24 08/15/24 23:59 23:59 23:59 Intake Total 1202 / 1202 Output Total 200 / 200 Balance 1002 / 1002 Lab / Micro Data 08/02/24 11:29 08/02/24 11:29 Labs: Laboratory Results - last 24 hr 08/15/24 06:14: POC Glucose 138 H Micro: Microbiology 08/02/24 11:29 Swab (Method) Nasal Screen MRSA/MSSA - Final Radiography Diagnostic Testing: Radiology Impression Lumbar Spine X-Ray 08/15/24 07:30 IMPRESSION: Intraoperative views obtained for documentation. Electronically Signed: Yovany Rosales MD at 12:36 EST , Physical Exam Const alert, oriented x3, no apparent distress, average body habitus and well nourished Constitutional Narrative: Middle-aged, white female, sitting up in a chair at the bedside, family at bedside, patient appears as if she is not feeling great but does not appear toxic HEENT head/scalp atraumatic HEENT Narrative: Mucous membranes are slightly dry Head and Scalp: normocephalic Resp normal respiratory effort, no retractions, no use of accessory muscles and clear to auscultation bilaterally Auscultation: Negative for rales, rhonchi or wheezes Cardio regular rate, regular rhythm, S1 normal heart sound, S2 normal heart sound, no murmurs, no rub, no gallops and no clicks GI normal to inspection, nondistended, normoactive bowel sounds, soft to palpation and non-tender Extremity no clubbing, cyanosis or edema Neuro oriented x3, moves all extremities and no focal motor deficits Psych Psych Narrative: Affect is flattened patient appears she is not feeling well right now Assessment & Plan Assessment/Plan (1) Spondylolisthesis, lumbar region: (2) Low back pain: PLAN: Plan L5-S1 spondylolisthesis with neurogenic claudication -POD day 0 L5-S1 posterior spinal fusion with pedicle screw instrumentation and allograft cancellous chips -Pain meds per primary -recommend bowel regimen -PT/OT per primary service -DVT prophylaxis per primary service -Preoperative labs are reviewed without any significant abnormalities History of cholelithiasis -Status postcholecystectomy -No current issues History of GERD -Patient takes no medication chronically Chronic pain/neuropathy -Management per primary service DVT prophylaxis -Per primary service CODE STATUS Full code Charges/Coding Visit Charges Inpatient E&M: 21379 Subs Hosp L2
[2024-08-15] MEDS: Ketorolac 15 MG/ML Vial IV (17:24)
--- NOTE | 2024-08-15 17:33 | PCM.OPRPT ---
Operative Report (Standard) Operative Information Surgery/Procedure Performed: L5-S1 anterior lumbar interbody fusion (ALIF), supine: ? L5-S1 anterolateral spinal fusion 94521 ? L5-S1 insertion of cage [id number] . L5-S1 anterior spinal instrumentation 51379 ? Bone graft aspirate S1 body same incision ? Allograft cancellous chips Surgeon: Co surgeons: Dr. Casey, Dr. Patten Date of Procedure: 08/15/24 Procedure Start Time: 08:00 Procedure Stop Time: 11:00 Pre-Operative Diagnosis: L5-S1 spondylolisthesis with stenosis with neurogenic claudication Post-Operative Diagnosis: same Select all DRAINS/GRAFTS/IMPLANTS that apply: Implanted device Implanted device details: Allograft cancellous bone chips, DBX, autologous bone marrow aspirate and Implanted device Implanted device details: 4WEB anterior spine truss system cage, Aegis 4 hole plate Type of Anesthesia: General Estimated Blood Loss: 50 Specimen collected: No Description of surgery: HPI: Patient is a 63-year-old female with L5-S1 degenerative disc disease was felt to be appropriate for anterior lumbar interbody fusion. Vascular surgery assistance is requested for exposure in order to mobilize and protected the abdominal pelvic vasculature. Description of procedure: Upon obtaining form consent and verification correct patient procedure site patient was taken to the operating room where she was placed under general anesthesia. She was then positioned prepped and draped in usual sterile fashion and timeout performed. Transverse incision was made 2 fingerbreadths superior to the pubic symphysis and Bovie electrocautery was dissect down through the subcutaneous tissue. Dissection was then carried down to the fascia which was incised vertically at the midline and extended with Metzenbaum scissors. The rectus muscle was then retracted at the midline exposing the preperitoneal space. Blunt dissection was utilized to mobilize the abdominal contents superiorly and medially exposing the left iliac vessels and psoas muscle. Syn Frame self-retaining retractor was then put in position and further mobilization of the structures overlying the midline spine performed. The left iliac artery and vein were mobilized and retracted laterally and superiorly and the disc space identified. The middle sacral vein was controlled with Bovie and divided and further retraction of the vessels performed. Once satisfactory exposure of the disc space was obtained Dr. Casey his discectomy and implant insertion which he will describe in greater detail. Upon completion the self-retaining retractor blades were sequentially withdrawn allowing inspection of the iliac vessels which were patent with no evidence of injury. The abdominal contents were then allowed to return to the [place] position and the superficial wound copiously irrigated with saline. The incision was then closed with strata fix for the fascia followed by 2-0 Vicryl, 3-0 Vicryl and 4 Monocryl for the skin. Dry sterile dressing was then applied and the patient was repositioned for posterior approach which Dr. Casey will dictate separately. Surgical Findings: see above Fish Drier internet application developer: Yes Hall Clerk: Yu Hernandez Tasks completed by first aid officer: Opening, Closing and Retracting Complications Complications: No
[2024-08-15] MEDS: proMETHazine 25 MG/ML Syringe 12.5 MG IM (18:57)
[2024-08-15] MEDS: Senna/Docusate Sodium 1 Tablet 2 TABLET PO (21:39)
[2024-08-15] MEDS: Gabapentin 100 MG Capsule PO (21:39)
[2024-08-16] VITALS (7 sets, daily range): BP systolic 89–129; BP diastolic 51–66; PULSE 77–91; RESP 15–18; TEMP 36.2–37.3; O2SAT 95–100
[2024-08-16] MEDS: 0.9% Saline Lock 10 ML Syringe IV ×2 (00:20→06:26)
[2024-08-16] MEDS: Ketorolac 15 MG/ML Vial IV ×2 (00:21→06:25)
[2024-08-16] MEDS: Clindamycin 900 MG/50 ML BAG 75 MG IV (00:23)
[2024-08-16] MEDS: HYDROcodone Bitartrate/Apap 5/325 Tablet PO ×3 (03:38→21:55)
[2024-08-16 06:53] LABS: Hematocrit 29.8 % (37-47); Hemoglobin 9.5 g/dL (12.0-15.0); Mean Corp Hgb Conc 31.9 g/dL (32-36); Mean Corpuscular Hgb 29.1 pg (27.0-32.0); Mean Corpuscular Volume 91.1 fL (81-99); Mean Platelet Vol. 10.5 fl (6.2-12.0); Platelet Count 169 K/mm3 (150-450); RBC Distribution Width SD 43.1 fl (35.1-43.9); Red Blood Count 3.27 M/mm3 (4.2-5.4); White Blood Count 13.7 K/mm3 (4.4-11.0)
[2024-08-16 07:37] LABS: Anion Gap 8 (5-15); BUN 18 mg/dL (7-18); BUN/Creat Ratio 15.3 RATIO (10-20); Calcium,Total 8.4 mg/dL (8.5-10.1); Chloride 108 mmol/L (98-107); Creatinine, Serum 1.18 mg/dL (0.55-1.02); EST Glomerular Filtration Rate 49 mL/min (>60); Est Glom Filt Rate - Afr Amer 59 mL/min (>60); Estimated Creatinine Clearance 40.27 ml/min; Glucose 132 mg/dL (74-106); Potassium 4.5 mmol/L (3.5-5.1); Sodium Level 139 mmol/L (136-145)
--- NOTE | 2024-08-16 08:20 | RAD_ITS ---
STUDY: X-RAY - LUMBAR SPINE REASON FOR EXAM: Female, 63 years old. Postop pain TECHNIQUE: 2 view(s) of the lumbar spine were obtained. COMPARISON: 05/11/2024 FINDINGS: Since the previous study, the patient has undergone posterior and anterior fusion at L5 and S1 to stabilize a grade 1-2 spondylolisthesis. A synthetic disc has been placed at L5/S1. Hardware is intact and free of complication. Normal lumbar lordosis. There is no substantial scoliosis. There is a normal alignment of the vertebrae from L1 to L5. There is a persistent surgically stabilized spondylolisthesis at L5/S1. Normal vertebral bodies and endplates. Normal disc space heights. There is no demonstrated fracture. The soft tissue structures are unremarkable. RAD/Lumbar Spine 2 or 3 Views IMPRESSION: Patient has undergone anterior and posterior surgical fusion at L5/S1. Hardware is intact and free of complication No fracture or suspicious osseous lesion Stable spondylolisthesis at L5/S1 Electronically Signed: Scout Ibrahim MD at 8:40 EST ,
--- NOTE | 2024-08-16 09:59 | CASEMGMT ---
ABI EDWARDS Assessment: Face to Face with pt for initial transition planning/care coordination assessment. RN GRACE introduced self and role at [facility], pt voices understanding and consents to assessment. Pt is A&O x4 and answers all questions appropriately at this time. Pt sitting up in chair in no distress. Care providers, pharmacy, and demographics verified/updated. Strata: 1 Admitting Dx: Lumbar fusion L5-S1 PCP: Doug Specialists: Kali Casey. Preferred Pharmacy: [facility] Insurance: [facility] Prescription Benefit: yes LNOK: , James; Daughter, Jenny. Living Arrangements: Pt lives with and MIL in a 2 story home with 2 steps to enter. ADLs: Pt reports I at baseline with ADLs and IADLs. Transportation: Pt drives self and denies concerns with transportation. DME: Walker, Rollator, shower chair. HHC/SNF: [facility]. Pt states no concerns with going home at time of dc. Pt states no further concerns/needs. CM to follow. Advised pt to ask CM if any further question/concerns/needs arise, voices understanding. Pt Goal: home Plan: Home with family support. Reymundo ALEX CM
[2024-08-16] MEDS: Meloxicam 15 MG Tablet PO (10:08)
[2024-08-16] MEDS: Senna/Docusate Sodium 1 Tablet 2 TABLET PO ×2 (10:08→21:47)
[2024-08-16] MEDS: Cholecalciferol (VIT D3) 25 MCG TABLET (1,000 UNITS) 50 MCG PO (10:08)
[2024-08-16] MEDS: Bisacodyl 5 MG Tablet 10 MG PO ×2 (10:09→14:46)
[2024-08-16] MEDS: Methocarbamol 500 MG Tablet 1000 MG PO ×4 (10:09→21:48)
--- NOTE | 2024-08-16 11:26 | PCM.PN.ORT ---
Subjective Subjective POD 1 L5-S1 lumbar fusion. Patient was standing at sink in bathroom brushing her teeth upon arrival. She demonstrated good bed mobility. Patient was groggy for most of the day yesterday. Therapy initially saw her yesterday evening however she was unable to fully participate due to being tired. Today she walked well with therapy, no recommendations at discharge. She has ambulated to the bathroom with the walker and assistance. No flatus. Pain has been well managed. Objective Data Objective Data Vital Signs: Vital Signs Temp Pulse Resp BP Pulse Ox O2 Del Method O2 Flow Rate 98.2 F 81 18 93/59 L 100 Room Air 2 08/16/24 07:51 08/16/24 07:51 08/16/24 07:51 08/16/24 07:51 08/16/24 07:51 08/16/24 07:51 08/15/24 21:29 Oxygen Flow Rate (L/min) 2 Oxygen Delivery Method Room Air Weight: 130 lb 1.164 oz Body Mass Index (BMI) 24.5 Intake & Output: Intake and Output for Last 24 Hours 08/14/24 08/15/24 08/16/24 23:59 23:59 23:59 Intake Total 1602 / 1602 673.25 / 673.25 Output Total 200 / 200 Balance 1402 / 1402 673.25 / 673.25 Lab / Micro Data 08/16/24 06:24 08/16/24 06:24 Labs: Laboratory Results - last 24 hr 08/16/24 06:24: WBC 13.7 H, RBC 3.27 L, Hgb 9.5 L, Hct 29.8 L, MCV 91.1, MCH 29.1, MCHC 31.9 L, RDW Std Deviation 43.1, RDW Coeff of Sami 13.0, Plt Count 169, MPV 10.5, Sodium 139, Potassium 4.5, Chloride 108 H, Carbon Dioxide 23.0, Anion Gap 8, BUN 18, Creatinine 1.18 H, Estim Creat Clear Calc 40.27, Est GFR (MDRD) Af Amer 59 L, Est GFR (MDRD) Non-Af 49 L, BUN/Creatinine Ratio 15.3, Glucose 132 H, Calcium 8.4 L Micro: Microbiology 08/02/24 11:29 Swab (Method) Nasal Screen MRSA/MSSA - Final Radiography Diagnostic Testing: Radiology Impression Lumbar Spine X-Ray 08/15/24 07:30 IMPRESSION: Intraoperative views obtained for documentation. Electronically Signed: Yovany Rosales MD at 12:36 EST , Lumbar Spine X-Ray 08/16/24 08:20 IMPRESSION: Patient has undergone anterior and posterior surgical fusion at L5/S1. Hardware is intact and free of complication No fracture or suspicious osseous lesion Stable spondylolisthesis at L5/S1 Electronically Signed: Scout Ibrahim MD at 8:40 EST , Physical Exam Narrative Neurological exam of the lower extremities shows 5x5 power. Normal sensations across all dermatomes. Tegaderm and gauze intact over belly and back incisions. Const alert, oriented x3 and no apparent distress Assessment & Plan Assessment/Plan (1) Status post lumbar spinal fusion: PLAN: Plan POD #1 L5-S1 lumbar fusion. Xrays done today look good. PT/OT cleared. No flatus. Dulcolax x1, continue clear liquids until passes flatus. Second Dulcolax this evening if no flatus. After flatus advance to regular diet. Continue to walk with assistance as much as possible. Encouraged her to use the incentive spirometer, and taught her how to use it. Patient is in agreement.
--- NOTE | 2024-08-16 12:41 | CHAPLAIN ---
Type of Pastoral Visit _x__ Initial Visit ___ Follow-up Visit ___ On-call Visit ___ General Patient Visit ___ Spiritual Assessment ___ Family Conference ___ Bereavement ___ Rapid Response ___ Code Blue ___ Other (describe below) Pastoral Care Referral From _x__ Patient _x__ Family ___ Nurse ___ Physician ___ [place] Field Service Technician ___ Station Jailer ___ Other (describe below) Sacrament/Intervention _x__ Active listening ___ Anointing ___ Jain ___ Bereavement ___ Communion ___ Elsie exploration ___ _x__ Life review _x__ Prayer ___ Reconciliation ___ Sacrament of Sick _x__ Supportive presence ___ Wedding ___ Other (describe below) Pastoral Comments spouse is very welcoming of this senior strategy manager as he remembers spiritual care provided during his hospital stays in 2018; patient explains how post surgery went and that today is much better; explored emotional concerns or needs; provided presence and prayer
[2024-08-16] MEDS: Gabapentin 100 MG Capsule PO (21:47)
[2024-08-17 04:37] VITALS: BP 106/60; PULSE 88; RESP 16; TEMP 36.9; O2SAT 94
[2024-08-17] MEDS: Ensure Surgery 237 ML LIQUID PO (07:48)
[2024-08-17 08:06] VITALS: BP 107/64; PULSE 88; RESP 18; TEMP 36.3; O2SAT 92
[2024-08-17] MEDS: Senna/Docusate Sodium 1 Tablet 2 TABLET PO (09:48)
[2024-08-17] MEDS: Meloxicam 15 MG Tablet PO (09:48)
[2024-08-17] MEDS: Methocarbamol 500 MG Tablet 1000 MG PO ×2 (09:48→14:41)
[2024-08-17] MEDS: Cholecalciferol (VIT D3) 25 MCG TABLET (1,000 UNITS) 50 MCG PO (09:48)
--- NOTE | 2024-08-17 12:15 | PCM.PN.ORT ---
Subjective Subjective POD #2 L5-S1 lumbar fusion. Patient stayed the night due to not passing gas. Plan to discharge today. She has continued to walk well with therapy who recommend a home discharge. Her pain has been well managed. She has passed gas this morning and tolerated a solid meal. Objective Data Objective Data Vital Signs: Vital Signs Temp Pulse Resp BP Pulse Ox O2 Del Method O2 Flow Rate 97.4 F L 88 18 107/64 92 Room Air 2 08/17/24 08:06 08/17/24 08:06 08/17/24 08:06 08/17/24 08:06 08/17/24 08:06 08/17/24 08:07 08/15/24 21:29 Oxygen Flow Rate (L/min) 2 Oxygen Delivery Method Room Air Weight: 130 lb 1.164 oz Body Mass Index (BMI) 24.5 Intake & Output: Intake and Output for Last 24 Hours 08/15/24 08/16/24 08/17/24 23:59 23:59 23:59 Intake Total 1602 / 1602 673.25 / 973.25 500 / 500 Output Total 200 / 200 Balance 1402 / 1402 673.25 / 973.25 500 / 500 Lab / Micro Data 08/16/24 06:24 08/16/24 06:24 Micro: Microbiology 08/02/24 11:29 Swab (Method) Nasal Screen MRSA/MSSA - Final Physical Exam Narrative Neurological exam of the lower extremities shows 5x5 power. Normal sensations across all dermatomes. Tegaderm and gauze intact over belly and back incisions. Const alert, oriented x3 and no apparent distress Assessment & Plan Assessment/Plan (1) Status post lumbar spinal fusion: PLAN: Plan Plan for home discharge today. PT/OT cleared. Home meds include hydrocodone-acetaminophen, Robaxin, senna. Reviewed restrictions. Follow up in clinic in 2 weeks.
--- NOTE | 2024-08-17 13:14 | PHA.DC_ITS ---
Pharmacy [facility] has performed discharge medication reconciliation and counseling for this patient. 1. NORCO 5/325MG 1T PO Q6H PRN PAIN 4-10 2. METHOCARBAMOL 750MG PO TID PRN PAIN/SPASMS 3. SENNA/DOCUSATE 2T PO BID PRN CONSTIPATION The patient's discharge medication list was reviewed for discrepancies and discrepancies were resolved. The patient was counseled on the following discharge medications and changes in medications for homegoing were reviewed. The Reason for Use, instructions for use, and potential side effects were reviewed for all new medications. The patient's questions regarding all of their medications were answered. The patient was able to verbally demonstrate an understanding of their discharge medications. Patient counseled by pharmacy retail support specialistMartinez. Medications at Discharge Home Medications cholecalciferol (vitamin D3) 50 mcg (2,000 unit) capsule 2,000 unit PO DAILY SUPPLEMENT 02/10/19 lactobacillus combination no.4 3 billion cell capsule (Probiotic) 3,000 mmu cells PO DAILY SUPPLEMENT 05/11/24 meloxicam 15 mg tablet 15 mg PO DAILY PAIN 05/11/24 gabapentin 100 mg capsule 100 mg PO QHS PAIN 08/02/24 vitamin A 2,500 unit-vit C 100 mg-biotin 2,500 spw-vnlq-jqaoio capsule (Juwn-Jdbs-Gagu (vit A,U-qxuodq-Tz-Cu)) 1 cap PO DAILY SUPPLEMENT 08/02/24 magnesium citrate 125 mg capsule 250 mg PO DAILY supplem 08/15/24 hydrocodone-acetaminophen 5-325mg 5mg-325mg 1 tab PO Q6H PRN PRN Pain Score 4-10 7 days #28 tabs 08/17/24 methocarbamol 500 mg tablet 750 mg (1.5 x 500 mg) PO TID PRN pain/spasms #30 tabs 08/17/24 sennosides 8.6 mg-docusate sodium 50 mg tablet (Stimulant Laxative Plus) 2 tab PO BID PRN constipation #30 tabs 08/17/24
[2024-08-17 14:35] VITALS: BP 116/68; PULSE 95; RESP 18; TEMP 37.1; O2SAT 96
[2024-08-17] MEDS: HYDROcodone Bitartrate/Apap 5/325 Tablet PO (14:41)
== END 2024-08-17 16:36 | disposition home or self-care (01) | DRG 448 ==
PROVIDERS: Anesthesiology; Student in an Organized Health Care Education/Training Program; Admitting Provider Orthopaedic Surgery Orthopaedic Surgery of the Spine; PCP Family Medicine; Referring Provider Orthopaedic Surgery Orthopaedic Surgery of the Spine; Visit Provider Orthopaedic Surgery Orthopaedic Surgery of the Spine
PROC: 0SG30A0 Fusion of Lumbosacral Joint with Interbody Fusion Device, Anterior Approach, Anterior Column, Open Approach (ICD-10-PCS; principal; 2024-08-15 07:00)
DX: M43.17 Spondylolisthesis, lumbosacral region (principal); G89.29 Other chronic pain; M48.062 Spinal stenosis, lumbar region with neurogenic claudication; Z79.1 Long term (current) use of non-steroidal anti-inflammatories (NSAID); Z79.899 Other long term (current) drug therapy
CPT/HCPCS: 36415; 72100; 76000; 80048; 82962; 83735; 85025; 85027; 86703; 86706; 86708; 86803; 86850; 86900; 86901; 87081; 94668; 97162; 97166; 97530; 97535; A4648; C1713; J7120; A4216; J2405; J3475

== ENCOUNTER 2024-12-28 12:00 | Outpatient (RCR) | payer OTHER, SELFPAY ==
--- NOTE | 2024-09-23 12:29 | HP.PTEVAL ---
Patient's Visit Information Visit Information Visit Information: FUNMILAYO SYKES is a 63 year old F referred to Physical Therapy by Dr. Thomas Casey MD with a diagnosis of Spinal Fusion. Date of Evaluation: 09/23/24 Physical Therapist: Jasmina Jensen DPT Visit Plan Frequency: 2x /Week Duration: 4 Weeks Plan: 08/16/2024- Spinal Fusion Focus on LE and core strength/stabilization- start slow and build as tolerated Precautions: no bending lifting or twisting HEP Given IE:TA contraction, postural education, SLS, kitchen sink ex Subjective Subjective: Aug 15 L5-S1 Spinal Fusion- she is off pain medication but if she going to work out she took some Tylenol. She was taking therapy for awhile and shew as not getting any better- lots of back pain and both feet would go numb- she would have to go home from work- Oct 2023 it started- Therapy then had an MRI- scheduled surgery. She only has pain 1-2/. She has a bone stimulator-that she wears for 2 hours that she wears regularly. She does not bend, lift or twist. Agg: twisting. Eases: recliner with pillows. Describes the pain as dull and achy- the pain is along the middle of the lumbar spine. Achy after her shower when she is tired. Sleep: not disturbed- in her bed. No N/T in her LE. She feels like she is weak- she misses her yoga and dancing. She has been cleared to drive but she has not done it yet. 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 PMHx/Meds: no change since saw ortho. Objective Objective: Posture: fair- moderately guarded Gait: good- no deviate noted- good arm swing and trunk rotation HR/TR: good- equal side to side SLS: 5 seconds bilateral- no side to side difference Observation: incisions well healed no s/s of infection ROM: Lumbar: Flexion: hands to knees- Extn: neutral, SB: decreased by 75% Rotation: decreased by 50%- all with significant guarding and fear. LE: WNL Sensation: WNL to gross touch bilaterally Strength: Core: poor, Left Hip: Flexion: 11 Extn: 21 Add: 11, Abd: 14, Knee: Flexion: 13, Extn: 23 Right: Hip: Flexion: 13 Extn: 27 Add: 11, Abd: 17, Knee: Flexion: 15, Extn: 27 Flex: HS: severe, Gastroc: moderate Balance/Special Test Scores Oswestry Low Back Score: 10 Goals Goal 1:: Patient will be I with HEP and progression Goal Time Frame: 4-6 Weeks Goal 2:: Patient will maintain proper posture t/o tx session to demo increase core s/s Goal Time Frame: 4-6 Weeks Goal 3:: Patient will report 80% improvement Goal Time Frame: 4-6 Weeks Goal 4:: Patient will demo full lumbar ROM Goal Time Frame: 4-6 Weeks Rehabilitation Potential Physical Therapy Diagnosis: Patient presents with hypomobility- she has decreased ROM, LE and core strength/stabilization, proprioception, flexibility and muscular endurance s/p spinal fusion leading decreased ability to perform ADL's Rehabilitation Potential: Good Anticipated Interventions Patient/Client Instruction: Educate patient on: Benefits of Fitness Program Therapeutic Exercise to Include: Strength training, Endurance training, Coordination, Agility training, Body mechanics, Postural training, Flexibilty training, Gait and locomotor training, Neuromotor development, Dynamic Lumbar Stabilization and Scapular Strength/Stabilization For the Purpose of:: To improve muscle performance and motor function TENS: Yes Cryotherapy (ice pack, ice massage): Yes Thermo therapy (hot pack): Yes Text: Thank you for the opportunity to evaluate your patient. For Medicare and Medicare HMO plans, please review the plan of care and approve it. It will need to be FAXED BACK to us at [phone] for Medicare purposes. For Medicare only, by signing this I certify the plan of care. Please let me know if there are questions or concerns regarding this plan of care. Physician Signature: Date:
--- NOTE | 2024-11-01 12:01 | HP.PTREVAL ---
Re-Evaluation Intro: Dr. Thomas Casey MD, It has been my pleasure to treat FUNMILAYO SYKES over the last 8 visits for Spinal Fusion 08/15/24. Please see the progress note below for an update on the physical therapy plan of care! Subjective Subjective: Overall pt is ok but winded sometimes. She feels that her stomach muscles are still weak. She can do most everything at home but can't lift more than 16#. She did not bring her cane today and only uses it when the roads are bad. Pt feels that she needs more PT as we just started to do more with weight and abdominals Objective Objective/Function: Still not able to bend, twist due to restricitions Plan Plan Plan: GIVE ADDITIONAL PICS for HEP for mat exercises. 08/16/2024- Spinal Fusion Focus on LE and core strength/stabilization, walking endurance, posture Precautions: no bending lifting or twisting Balance/Gait/Functional tests Balance/Special Test Scores Oswestry Low Back Score: 14 Goals Goals Goal 1:: Patient will be I with HEP and progression Goal Time Frame: 4-6 Weeks Goal Progress: Progressing Goal 2:: Patient will maintain proper posture t/o tx session to demo increase core s/s Goal Time Frame: 4-6 Weeks Goal Progress: Progressing Goal 3:: Patient will report 80% improvement Goal Time Frame: 4-6 Weeks Goal Progress: Progressing Goal 4:: Patient will demo full lumbar ROM Goal Time Frame: 4-6 Weeks Anticipated Interventions Anticipated Interventions Patient/Client Instruction: Educate patient on: Benefits of Fitness Program Therapeutic Exercise to Include: Strength training, Endurance training, Coordination, Agility training, Body mechanics, Postural training, Flexibilty training, Gait and locomotor training, Neuromotor development, Dynamic Lumbar Stabilization and Scapular Strength/Stabilization For the Purpose of:: To improve muscle performance and motor function TENS: Yes Cryotherapy (ice pack, ice massage): Yes Thermo therapy (hot pack): Yes Re-Evaluation Ending Re-evaluation ending: Please do not hesitate to contact me at [phone] by phone or if you have questions or concerns regarding this new plan of care! Sincerely, Gertrude Posey, MPT
--- NOTE | 2025-01-11 11:58 | HP.PT.NRP ---
Patient Information Patient Information: FUNMILAYO SYKES was seen in my office for initial evaluation on 09/23/24. The following Plan of Care was established for this patient: POC Established Initial Frequency: 2x /Week Initial Duration: 4 Weeks Anticipated Interventions Patient/Client Instruction: Educate patient on: Benefits of Fitness Program Therapeutic Exercise to Include: Strength training, Endurance training, Coordination, Agility training, Body mechanics, Postural training, Flexibilty training, Gait and locomotor training, Neuromotor development, Dynamic Lumbar Stabilization and Scapular Strength/Stabilization For the Purpose of:: To improve muscle performance and motor function TENS: Yes Cryotherapy (ice pack, ice massage): Yes Thermo therapy (hot pack): Yes Last Seen Last Seen: This patient was last seen in our office . Pertinent comments regarding their Physical therapy will appear below: At this point I will be discontinuing this patient from physical therapy. I would be happy to see this patient again in the future if found appropriate by the physician. Thank you! Gertrude Posey, CAMPOS Balance/Gait/Functional tests Balance/Special Test Scores Oswestry Low Back Score: 2
== END 2024-12-28 19:00 | disposition home or self-care (01) ==
LOC: PT 12:00
PROVIDERS: PCP Family Medicine; Referring Provider Orthopaedic Surgery Orthopaedic Surgery of the Spine; Visit Provider Orthopaedic Surgery Orthopaedic Surgery of the Spine
DX: Z98.1 Arthrodesis status (principal)
CPT/HCPCS: 97110; 97530

== ENCOUNTER → 2025-03-02 | Outpatient (CLI) | payer OTHER, SELFPAY ==
[2025-03-02 10:51] LABS: Anion Gap 14 (5-15); BUN 16 mg/dL (4-19); BUN/Creat Ratio 16.2 RATIO (10-20); Calcium,Total 9.4 mg/dL (7.6-11.0); Carbon Dioxide 21.9 mmol/L (21.0-32.0); Chloride 106 mmol/L (98-108); Cholesterol 163 mg/dL (<=200); Creatinine, Serum 1.01 mg/dL (0.70-1.20); EST Glomerular Filtration Rate 62 (>60); Glucose 93 mg/dL (70-99); High Density Lipoprotein 47 mg/dL; Low Density Lipoprotein Calc. 103 mg/dL; Potassium 4.1 mmol/L (3.3-5.1); Sodium Level 142 mmol/L (133-145); Triglycerides 68 mg/dL; Very Low Density Lipoprotein 14 mg/dL (5-40); cholesterol:hdl ratio screen 3.48
== END | disposition home or self-care (01) ==
LOC: MFPLAB 09:38
PROVIDERS: PCP Family Medicine; Referring Provider Family Medicine; Visit Provider Family Medicine
DX: M54.9 Dorsalgia, unspecified (principal)
CPT/HCPCS: 36415; 80048; 80061